=== PATIENT | male | born 1960 | race Hispanic/Latino ===

== ENCOUNTER 2020-02-05 22:40 | Inpatient (IN) | payer OTHER ==
[~2020-02-05] VITALS: Ht 165.1 cm; Wt 79.4 kg
[2020-02-05 23:29] LABS: ABG BASE EXCESS -0.7 mmol/L (-2.0-3.0); ABG OXYGEN SATURATION 92.1 % (95.0-99.0); ABG PCO2 31 mmHg (35-48)
[2020-02-05 23:46] LABS: BASOPHILS % (AUTO) 0.2 % (0.0-5.0); HEMATOCRIT 31.4 % (42-54); LYMPHOCYTES % (AUTO) 11.7 % (21.0-51.0); MEAN CORPUSCULAR HEMOGLOBIN 30.6 pg (27.0-33.0); MEAN CORPUSCULAR VOLUME 87.5 fL (79-99); MONOCYTES % (AUTO) 3.5 % (3.0-13.0); NEUTROPHILS % (AUTO) 83.5 % (40.0-77.0); PLATELET COUNT (AUTO) 219 K/uL (130-400); RED BLOOD CELL COUNT(AUTO) 3.59 MIL/uL (4.50-6.20); RED CELL DISTRIBUTION WIDTH 13.7 % (11.0-15.5); WHITE BLOOD COUNT (AUTO) 9.3 K/uL (4.8-10.8)
[2020-02-05 23:58] LABS: CREATININE 1.4 mg/dL (0.5-1.5); POTASSIUM 3.9 mmol/L (3.5-5.1)
[2020-02-05 23:59] LABS: INR 0.96 (0.85-1.15); PARTIAL THROMBOPLASTIN TIME 33.3 SEC (26.3-35.5); PROTHROMBIN TIME 10.4 SEC (9.6-11.6)
[2020-02-06 00:03] LABS: ALBUMIN 3.3 g/dL (3.5-5.0); BILIRUBIN,TOTAL 0.5 mg/dL (0.2-1.0); TOTAL PROTEIN, SERUM 7.6 g/dL (6.0-8.3)
[2020-02-06] MEDS ORDERED: ONDANSETRON ODT 4 MG TAB ONE ×2 (00:37→01:09)
[2020-02-06] MEDS ORDERED: FAMOTIDINE 20MG TAB 20 MG TAB ONE ×3 (00:37→21:49)
[2020-02-06 00:40] LABS: B-TYPE NATRIURETIC PEPTIDE 35 pg/mL (0-100)
[2020-02-06] MEDS ORDERED: IOHEXOL-350 75 ML VIAL IV ONE (01:24)
[2020-02-06] MEDS ORDERED: DEXAMETHASONE SOD PHOSPHATE 4 MG/ML 1ML VIAL ONE (01:29)
[2020-02-06] MEDS ORDERED: AZITHROMYCIN 500MG+NS 250ML 250 ML IV ONE (01:29)
[2020-02-06] MEDS ORDERED: CEFTRIAXONE SODIUM 1 GM ONE ×2 (01:30→13:13)
[2020-02-06] MEDS: AZITHROMYCIN 500MG+NS 250ML 250 ML IV SCH (02:30)
[2020-02-06] MEDS ORDERED: ONDANSETRON HCL 4 MG/2 ML VIAL IV PRN (02:30)
[2020-02-06] MEDS: CEFTRIAXONE SODIUM 1 GM IVP SCH ×2 (02:30→14:30)
[2020-02-06] MEDS ORDERED: SODIUM CHLORIDE 0.9% 1000ML 1,000 ML IV SCH (02:30)
[2020-02-06 03:30] LABS: APPEARANCE,URINE Clear (CLEAR); BILIRUBIN,URINE Negative (NEGATIVE); COLOR,URINE Yellow (YELLOW); GLUCOSE, URINE (UA) Negative (NEGATIVE); KETONES,URINE Trace mg/dL (NEGATIVE); LEUKOCYTE ESTERASE ,URINE Negative (NEGATIVE); NITRATE,URINE Negative (NEGATIVE); OCCULT BLOOD,URINE Moderate (NEGATIVE); PH,URINE 5.5 (5.0-8.0); PROTEIN,URINE POS 2+ mg/dL (NEGATIVE)
[2020-02-06 03:40] LABS: BACTERIA,URINE None Seen /HPF (None Seen); RBC,URINE 0-1 /HPF (0-1); SQUAMOUS EPITHELIAL CELL,UR Rare /HPF (0-2); WBC,URINE None Seen /HPF (0-1)
[2020-02-06 06:39] LABS: HEMATOCRIT 29.4 % (42-54); MEAN CORPUSCULAR HEMOGLOBIN 31.4 pg (27.0-33.0); MEAN CORPUSCULAR HGB CONC 35.7 g/dL (32.0-36.0); RED BLOOD CELL COUNT(AUTO) 3.34 MIL/uL (4.50-6.20); RED CELL DISTRIBUTION WIDTH 13.8 % (11.0-15.5); WHITE BLOOD COUNT (AUTO) 8.8 K/uL (4.8-10.8)
[2020-02-06 07:18] LABS: BILIRUBIN,TOTAL 0.4 mg/dL (0.2-1.0); CREATININE 1.1 mg/dL (0.5-1.5); POTASSIUM 4.1 mmol/L (3.5-5.1); TOTAL PROTEIN, SERUM 7.1 g/dL (6.0-8.3)
[2020-02-06 07:32] LABS: CRP QUANTITATIVE 347.7 mg/L (0.00-9.0)
[2020-02-06] MEDS ORDERED: FAMOTIDINE/PF 20 MG/2 ML VIAL IV ONE ×2 (08:56→21:57)
[2020-02-06] MEDS ORDERED: ERGOCALCIFEROL (VITAMIN D2) 50,000 UNIT CAPSULE PO ONE (09:00)
[2020-02-06] MEDS: FAMOTIDINE/PF 20 MG/2 ML VIAL IV SCH ×2 (09:00→21:00)
[2020-02-06] MEDS: ZINC SULFATE 220 CAPSULE PO SCH (09:00)
[2020-02-06] MEDS: ASCORBIC ACID 500 MG TAB PO SCH (09:00)
[2020-02-06] MEDS ORDERED: ENOXAPARIN SODIUM 40 MG/0.4 ML SYRINGE SQ ONE (11:38)
[2020-02-06] MEDS ORDERED: SODIUM CHLORIDE 0.9% 50 ML IV ONE (13:13)
[2020-02-06] MEDS: METHYLPREDNISOLONE SOD SUCC 40MG/ML 1ML IVP SCH ×2 (15:00→23:00)
[2020-02-06] MEDS ORDERED: METHYLPREDNISOLONE SOD SUCC 40MG/ML 1ML ONE ×2 (15:11→23:48)
--- NOTE | 2020-02-06 15:11 | NUR ---
CM SPOKE TO PATIENT VIA PHONE OFFERED TO GET INFORMATION FROM SOMEONE ELSE ON HIS FACE SHEET, DECLINED, SHORT OF BREATH VAHID IS ACTIVE, OFE, NO DME, EMPLOYED BY THE [facility], DRIVES, SEE DAREN WEBBER HAS BP CUFF AND NEBULIZER AT HOME, NO GLUCOMETER CPAP LIVES WITH SPOUSE, REC'D, CONFIRMED NUMBER AND ADDED TO FACE SHEET, AND FAXED DCP IS HOME. CM TO FOLLOW Addendum: 02/06/20 at 1516 by RUDDY RIOS RN CM Amended: Links added.
[2020-02-06] MEDS: LACTATED RINGERS 1000ML 1,000 ML IV SCH (17:15)
[2020-02-06] MEDS: ENOXAPARIN SODIUM 100 MG/1 ML SQ SCH (21:00)
[2020-02-06] MEDS ORDERED: ENOXAPARIN SODIUM 100 MG/1 ML SQ ONE (21:48)
[2020-02-06] MEDS ORDERED: LACTATED RINGERS 1000ML 1,000 ML IV ONE (21:49)
[2020-02-07] MEDS ORDERED: CEFTRIAXONE SODIUM 1 GM ONE (01:25)
[2020-02-07] MEDS ORDERED: AZITHROMYCIN 500MG+NS 250ML 250 ML IV ONE (01:25)
[2020-02-07] MEDS ORDERED: OXYMETAZOLINE HCL SPRAY 15 ML BOTTLE ONE (01:42)
[2020-02-07] MEDS: AZITHROMYCIN 500MG+NS 250ML 250 ML IV SCH (02:30)
[2020-02-07] MEDS: CEFTRIAXONE SODIUM 1 GM IVP SCH ×2 (02:30→15:18)
[2020-02-07] MEDS ORDERED: OXYMETAZOLINE HCL SPRAY 15 ML BOTTLE NS PRN ×2 (02:30→19:15)
[2020-02-07] MEDS: LACTATED RINGERS 1000ML 1,000 ML IV SCH ×3 (03:15→23:29)
[2020-02-07 04:00] VITALS: BP 152/78
[2020-02-07] MEDS: METHYLPREDNISOLONE SOD SUCC 40MG/ML 1ML IVP SCH ×3 (06:12→23:28)
[2020-02-07 07:32] LABS: HEMATOCRIT 32.4 % (42-54); MEAN CORPUSCULAR HEMOGLOBIN 31.4 pg (27.0-33.0); MEAN CORPUSCULAR HGB CONC 34.9 g/dL (32.0-36.0); RED BLOOD CELL COUNT(AUTO) 3.6 MIL/uL (4.50-6.20); RED CELL DISTRIBUTION WIDTH 14.1 % (11.0-15.5); WHITE BLOOD COUNT (AUTO) 12.5 K/uL (4.8-10.8)
[2020-02-07 07:48] LABS: ALBUMIN 2.9 g/dL (3.5-5.0); BILIRUBIN,TOTAL 0.4 mg/dL (0.2-1.0); CREATININE 1.1 mg/dL (0.5-1.5); POTASSIUM 4.9 mmol/L (3.5-5.1); TOTAL PROTEIN, SERUM 7.3 g/dL (6.0-8.3)
[2020-02-07 07:57] LABS: CRP QUANTITATIVE 289.3 mg/L (0.00-9.0)
[2020-02-07 08:00] VITALS: BP 128/74
[2020-02-07] MEDS: ASCORBIC ACID 500 MG TAB PO SCH (09:05)
[2020-02-07] MEDS: ZINC SULFATE 220 CAPSULE PO SCH (09:05)
[2020-02-07] MEDS: ENOXAPARIN SODIUM 100 MG/1 ML SQ SCH ×2 (09:05→21:00)
[2020-02-07] MEDS: FAMOTIDINE/PF 20 MG/2 ML VIAL IV SCH ×2 (09:06→21:00)
--- NOTE | 2020-02-07 10:24 | NUR ---
CHART CHECK COMPLETED. Pt IS A 59 Y.O. MALE ADMITTED SECONDARY TO ACUTE RHABDOMYOLYSIS, PUI COVID19, ACUTE HYPOXEMIA, PNA. Pt WITH A PAST MEDICAL HISTORY SIGNIFICANT FOR THYROID PROBLEMS, HYPERCHOLESTEROLEMIA. Pt CURRENTLY ON CLEAR LIQUID DIET. PLEASE REQUEST A FORMAL DYSPHAGIA EVALUATION OF Pt'S RESPIRATORY STATUS DECLINES OR Pt PRESENTS WITH +S/S OF ASPIRATION DURING SWALLOWING SUCK COUGH RESPONSE, THROAT CLEAR, OR WET VOCAL QUALITY. Addendum: 02/07/20 at 1028 by JOSELINE SOTELO, [facility] Amended: Links added.
[2020-02-07 11:00] VITALS: BP 139/81
[2020-02-07 16:00] VITALS: BP 147/87
[2020-02-07] MEDS ORDERED: ENOXAPARIN SODIUM 40 MG/0.4 ML SYRINGE SQ SCH (16:00)
[2020-02-07 20:00] VITALS: BP 151/91
[2020-02-08] VITALS (48 sets, daily range): BP systolic 101–196; BP diastolic 57–106
[2020-02-08] MEDS: ALBUTEROL INHALER 90MCG/INH IH PRN ×2 (00:20→00:21)
[2020-02-08 02:46] LABS: ABG BASE EXCESS -0.3 mmol/L (-2.0-3.0); ABG HCO3 22.8 mmol/L (21.0-28.0); ABG OXYGEN SATURATION 83.6 % (95.0-99.0); ABG PCO2 33 mmHg (35-48)
[2020-02-08] MEDS: CEFTRIAXONE SODIUM 1 GM IVP SCH ×2 (02:58→14:15)
[2020-02-08] MEDS: AZITHROMYCIN 500MG+NS 250ML 250 ML IV SCH (02:58)
[2020-02-08 05:21] LABS: HEMATOCRIT 30.1 % (42-54); MEAN CORPUSCULAR HGB CONC 35.2 g/dL (32.0-36.0); NUCLEATED RED BLOOD CELLS 0.4 % (0.0-0.19); RED BLOOD CELL COUNT(AUTO) 3.42 MIL/uL (4.50-6.20); RED CELL DISTRIBUTION WIDTH 14.2 % (11.0-15.5); WHITE BLOOD COUNT (AUTO) 13.4 K/uL (4.8-10.8)
[2020-02-08 05:54] LABS: ALBUMIN 2.7 g/dL (3.5-5.0); BILIRUBIN,TOTAL 0.4 mg/dL (0.2-1.0); CREATININE 1.3 mg/dL (0.5-1.5); POTASSIUM 4.2 mmol/L (3.5-5.1)
[2020-02-08 06:06] LABS: CRP QUANTITATIVE 237.2 mg/L (0.00-9.0)
[2020-02-08] MEDS ORDERED: SODIUM CHLORIDE 0.9% 250 ML IV ONE ×2 (06:24→09:09)
--- NOTE | 2020-02-08 07:15 | NUR ---
pt received from floor. aaox4 resp labored at rest. RT at bedside. on high flow nasal cannula and nrb. skin appropriate in color, warm, dry moving all extremities freely speaking in fragmented sentences with clear speech pt updated on POC.
[2020-02-08] MEDS: ZINC SULFATE 220 CAPSULE PO SCH (09:00)
[2020-02-08] MEDS: ASCORBIC ACID 500 MG TAB PO SCH (09:00)
[2020-02-08] MEDS: METHYLPREDNISOLONE SOD SUCC 40MG/ML 1ML IVP SCH ×3 (09:02→22:41)
[2020-02-08] MEDS: FAMOTIDINE/PF 20 MG/2 ML VIAL IV SCH ×2 (09:02→20:11)
[2020-02-08] MEDS: ENOXAPARIN SODIUM 100 MG/1 ML SQ SCH ×2 (09:04→20:12)
[2020-02-08] MEDS ORDERED: FUROSEMIDE 10 MG/ML 4ML VIAL ONE (09:08)
[2020-02-08] MEDS: FUROSEMIDE 10 MG/ML 4ML VIAL IV SCH (09:12)
[2020-02-08 09:15] LABS: ABG BASE EXCESS 0.7 mmol/L (-2.0-3.0); ABG HCO3 23.7 mmol/L (21.0-28.0); ABG OXYGEN SATURATION 88.7 % (95.0-99.0); ABG PCO2 34 mmHg (35-48)
--- NOTE | 2020-02-08 09:15 | NUR ---
Dr. Poe made aware of pt's resp status. Verbal order for lasix 40mg ivp daily. Dr. Yin at bedside. order for stat ABG. resp therapy at bedside high flow increased to 60 RN at bedside pt turned to R side 02 sat improved to 94%. Plasma started.
[2020-02-08] MEDS ORDERED: REMDESIVIR (INVESTIGATIONAL) 200 MG/250 ML NS IV ONE (09:30)
--- NOTE | 2020-02-08 14:00 | NUR ---
pt tachypneic, labored at rest. 02 sat dropping to 70s. Dr. Carrion made aware. MD at bedside. RN preparing meds for intubation. Resp therapist at bedside. Pt intubated successfully by MD. placement confirmed by xray. Central line placed by . Mariano placed. Pt continues to sat in 70s. MD aware of saturations.
[2020-02-08] MEDS ORDERED: SODIUM CHLORIDE 0.9% 100 ML IV ONE (14:11)
[2020-02-08] MEDS ORDERED: PROPOFOL 1000 MG/100 ML 100 ML IV ONE (14:44)
[2020-02-08] MEDS ORDERED: FENTANYL CITRATE PF 50 MCG/1 ML 2ML VIAL ONE (14:45)
[2020-02-08] MEDS ORDERED: NOREPINEPHRINE 4MG/NS 250ML 250 ML IV ONE (14:46)
[2020-02-08] MEDS ORDERED: FENTANYL CITRATE PF 50 MCG/1 ML 2ML VIAL IVP ONE (15:00)
[2020-02-08] MEDS ORDERED: ETOMIDATE 2 MG/ML 10 ML VIAL IVP SCH (15:00)
[2020-02-08] MEDS ORDERED: SODIUM CHLORIDE 0.9% 1000ML 1,000 ML IV ONE (15:47)
[2020-02-08] MEDS ORDERED: FENTANYL 1000MCG+NS 100ML 100 ML ONE ×2 (15:58→20:49)
[2020-02-08] MEDS: VECURONIUM BROMIDE 50 MG in SODIUM CHLORIDE 0.9% 50 ML IV SCH ×2 (16:41→20:46)
--- NOTE | 2020-02-08 17:45 | NUR ---
pt placed in prone position by 3 RNs and respiratory therapist. pt tolerating well. 02 sat remains in 80s. aware.
[2020-02-08 18:17] LABS: ABG BASE EXCESS -1.8 mmol/L (-2.0-3.0); ABG HCO3 27.5 mmol/L (21.0-28.0); ABG OXYGEN SATURATION 84.6 % (95.0-99.0); ABG PCO2 67 mmHg (35-48)
--- NOTE | 2020-02-08 19:01 | NUR ---
Report endorsed to MARY Hermosillo.
[2020-02-08] MEDS: PROPOFOL 1000 MG/100 ML IV PRN (20:11)
[2020-02-08] MEDS ORDERED: FENTANYL CITRATE PF 0.05 MG/ML 1,000 MCG in SODIUM CHLORIDE 0.9% 100 ML IVPB PRN (21:00)
[2020-02-09] VITALS (33 sets, daily range): BP systolic 77–145; BP diastolic 43–89
[2020-02-09] MEDS: PROPOFOL 1000 MG/100 ML IV PRN ×7 (00:28→21:39)
[2020-02-09] MEDS: CEFTRIAXONE SODIUM 1 GM IVP SCH ×2 (01:58→14:16)
[2020-02-09] MEDS: AZITHROMYCIN 500MG+NS 250ML 250 ML IV SCH (01:58)
[2020-02-09] MEDS: VECURONIUM BROMIDE 50 MG in SODIUM CHLORIDE 0.9% 50 ML IV SCH ×3 (02:16→20:05)
[2020-02-09] MEDS: FENTANYL 1000MCG+NS 100ML IV.SOLN IV SCH ×3 (03:57→17:29)
[2020-02-09] MEDS: METHYLPREDNISOLONE SOD SUCC 40MG/ML 1ML IVP SCH ×3 (06:29→23:34)
--- NOTE | 2020-02-09 07:09 | NUR ---
0400--PROPOFOL IV TUBING CHANGED AT THIS TIME PER PROTOL; IV CENTRAL PATENT,DRAINING; C/D/I 0700--REPORT GIVEN TO MARY HAMMER; VSS; NO S/S DISTRESS NOTED; RELINQUISHED PT CARE AT THIS TIME; PT REMAINS PRONED,SEDATED,PARALYZED, AND VENTED; NOTED VENT SYNCHRONY MAINTAINED
[2020-02-09 07:10] LABS: BASOPHILS % (AUTO) 0.1 % (0.0-5.0); HEMATOCRIT 28.8 % (42-54); LYMPHOCYTES % (AUTO) 8.9 % (21.0-51.0); MEAN CORPUSCULAR HEMOGLOBIN 31.5 pg (27.0-33.0); MEAN CORPUSCULAR VOLUME 92.6 fL (79-99); MONOCYTES % (AUTO) 1.5 % (3.0-13.0); NEUTROPHILS % (AUTO) 85.3 % (40.0-77.0); NUCLEATED RED BLOOD CELLS 0.3 % (0.0-0.19); PLATELET COUNT (AUTO) 303 K/uL (130-400); RED BLOOD CELL COUNT(AUTO) 3.11 MIL/uL (4.50-6.20); RED CELL DISTRIBUTION WIDTH 14.8 % (11.0-15.5); WHITE BLOOD COUNT (AUTO) 7.3 K/uL (4.8-10.8)
--- NOTE | 2020-02-09 08:00 | NUR ---
pt received resting comfortably in bed. 8.[address] 24 @ the lip Fio2 100% peep 12 RR 28 tidal volume 400 sedation and paralytics infusing through central line skin appropriate in color, warm, diaphoretic pt's head and arms repositioned.
[2020-02-09 08:17] LABS: ALBUMIN 2.2 g/dL (3.5-5.0); BILIRUBIN,DIRECT 0.1 mg/dL (0.0-0.3); BILIRUBIN,TOTAL 0.4 mg/dL (0.2-1.0); CREATININE 1.2 mg/dL (0.5-1.5); POTASSIUM 4.6 mmol/L (3.5-5.1); TOTAL PROTEIN, SERUM 6.4 g/dL (6.0-8.3)
[2020-02-09 08:43] LABS: CRP QUANTITATIVE 88.4 mg/L (0.00-9.0)
[2020-02-09] MEDS: FAMOTIDINE/PF 20 MG/2 ML VIAL IV SCH ×2 (10:04→20:04)
[2020-02-09] MEDS: ZINC SULFATE 220 CAPSULE PO SCH (10:04)
[2020-02-09] MEDS: ENOXAPARIN SODIUM 100 MG/1 ML SQ SCH ×2 (10:04→20:05)
[2020-02-09] MEDS: ASCORBIC ACID 500 MG TAB PO SCH (10:05)
[2020-02-09] MEDS: FUROSEMIDE 10 MG/ML 4ML VIAL IV SCH (10:21)
[2020-02-09] MEDS ORDERED: COMPOUND IV REFRIGERATED 1 EACH IVSOLN MISC PRN (13:00)
[2020-02-09] MEDS ORDERED: SODIUM CHLORIDE 0.9% 100 ML IV ONE (14:03)
--- NOTE | 2020-02-09 15:44 | NUR ---
pt turned and repositioned to supine with 2 RNs and RT. pt tolerated well.
--- NOTE | 2020-02-09 15:48 | NUR ---
Central line dressing changed as per hospital policy.
[2020-02-09] MEDS: REMDESIVIR (INVESTIGATIONAL) 100 MG in SODIUM CHLORIDE 0.9% 250 ML IV SCH (16:17)
[2020-02-09] MEDS ORDERED: NOREPINEPHRINE 4MG/NS 250ML 250 ML IV SCH (16:30)
[2020-02-09 17:04] LABS: ABG BASE EXCESS -0.2 mmol/L (-2.0-3.0); ABG HCO3 26.4 mmol/L (21.0-28.0); ABG PCO2 50 mmHg (35-48)
--- NOTE | 2020-02-09 17:18 | NUR ---
Dr. Carrion made aware of ABG results. as per MD titrate fio2 down. RT at bedside.
[2020-02-09] MEDS ORDERED: ALBUTEROL INHALER 90MCG/INH IH PRN (19:00)
--- NOTE | 2020-02-09 19:09 | NUR ---
Report endorsed to MARY Hermosillo
[2020-02-10] VITALS (37 sets, daily range): BP systolic 100–171; BP diastolic 51–100
[2020-02-10] MEDS: CEFTRIAXONE SODIUM 1 GM IVP SCH ×2 (01:17→14:29)
[2020-02-10] MEDS: AZITHROMYCIN 500MG+NS 250ML 250 ML IV SCH (01:17)
[2020-02-10] MEDS: PROPOFOL 1000 MG/100 ML IV PRN ×6 (01:17→22:35)
[2020-02-10] MEDS: VECURONIUM BROMIDE 50 MG in SODIUM CHLORIDE 0.9% 50 ML IV SCH ×2 (05:34→09:22)
[2020-02-10 05:56] LABS: PARTIAL THROMBOPLASTIN TIME 29.7 SEC (26.3-35.5); PROTHROMBIN TIME 10.8 SEC (9.6-11.6)
--- NOTE | 2020-02-10 06:39 | NUR ---
0000--propofol iv tubing changed 0100--levophed gtt titrated off at this time and fentanyl drip decreased to 10
[2020-02-10] MEDS: METHYLPREDNISOLONE SOD SUCC 40MG/ML 1ML IVP SCH ×2 (07:00→14:41)
--- NOTE | 2020-02-10 07:13 | NUR ---
BEDSIDE REPORT GIVEN TO MARY VELEZ; VSS; NO S/S DISTRESS NOTED; RELINQUISHED PT CARE AT THIS TIME
[2020-02-10] MEDS: ASCORBIC ACID 500 MG TAB PO SCH (07:56)
[2020-02-10] MEDS: ZINC SULFATE 220 CAPSULE PO SCH (07:56)
[2020-02-10] MEDS: FAMOTIDINE/PF 20 MG/2 ML VIAL IV SCH ×2 (07:56→20:26)
[2020-02-10] MEDS: ENOXAPARIN SODIUM 100 MG/1 ML SQ SCH ×2 (07:56→20:25)
[2020-02-10] MEDS: FUROSEMIDE 10 MG/ML 4ML VIAL IV SCH (07:59)
[2020-02-10 08:51] LABS: HEMATOCRIT 28.9 % (42-54); MEAN CORPUSCULAR HEMOGLOBIN 30.4 pg (27.0-33.0); MEAN CORPUSCULAR HGB CONC 32.5 g/dL (32.0-36.0); MEAN CORPUSCULAR VOLUME 93.5 fL (79-99); NUCLEATED RED BLOOD CELLS 0.4 % (0.0-0.19); PLATELET COUNT (AUTO) 341 K/uL (130-400); RED BLOOD CELL COUNT(AUTO) 3.09 MIL/uL (4.50-6.20); RED CELL DISTRIBUTION WIDTH 14.8 % (11.0-15.5); WHITE BLOOD COUNT (AUTO) 9.6 K/uL (4.8-10.8)
[2020-02-10] MEDS ORDERED: DEXAMETHASONE 4 MG TAB PO SCH (09:00)
[2020-02-10] MEDS: FENTANYL 1000MCG+NS 100ML IV.SOLN IV SCH ×2 (09:01→19:27)
[2020-02-10 09:06] LABS: BAND NEUTROPHILS % (MANUAL) 5 % (0-2); LYMPHOCYTES % (MANUAL) 6 % (22-44); MAN.DIFF COMMENT-IMPRESSION MANUAL DIFFERENTIAL; METAMYELOCYTES % 1 % (0-0); MONOCYTES % (MANUAL) 4 % (2-9); SEGMENTED NEUTROPHILS % 84 % (40-70)
[2020-02-10 09:16] LABS: CREATININE 1.2 mg/dL (0.5-1.5); POTASSIUM 4.5 mmol/L (3.5-5.1)
[2020-02-10 09:20] LABS: ALBUMIN 2.2 g/dL (3.5-5.0); BILIRUBIN,TOTAL 0.2 mg/dL (0.2-1.0); TOTAL PROTEIN, SERUM 6.4 g/dL (6.0-8.3)
[2020-02-10 09:39] LABS: ABG BASE EXCESS 2.1 mmol/L (-2.0-3.0); ABG HCO3 27.9 mmol/L (21.0-28.0); ABG OXYGEN SATURATION 97.1 % (95.0-99.0); ABG PCO2 49 mmHg (35-48)
--- NOTE | 2020-02-10 12:00 | NUR ---
MD rounds Dr. Poe at bedside discussed case with him was told to stop paralytics and see how patient does if he does not get agitated and breath over the ventilator we may start feedings trophic at 10cc/h as per pamphlet distributor recommendation use recommended tube feeding and free water [id number].
[2020-02-10] MEDS: REMDESIVIR (INVESTIGATIONAL) 100 MG in SODIUM CHLORIDE 0.9% 250 ML IV SCH (14:29)
--- NOTE | 2020-02-10 15:57 | NUR ---
RD NOTIFICATION Pt admitted with Acute Rhabdomyolysis. Pt intubated/sedated. Respiratory failure. Pending COVID-19 results. Recommend continuous tube feeding, Vital High Protein @goal rate of 45mls to provide 1080kcal, 95gm protein. Flush 100mls Q6hrs. Propofol 15.75mls/hr in place (416 kcal/d). Recommendations faxed to ext [phone]. RN notified. RD to continue to monitor. Please notify as additional nutrition concerns arise. Thank you.
[2020-02-10] MEDS ORDERED: SODIUM CHLORIDE 0.9% 1000ML 1,000 ML IV ONE (19:24)
[2020-02-10] MEDS: DEXAMETHASONE SOD PHOSPHATE 4 MG/ML 1ML VIAL IM SCH (20:26)
[2020-02-11] VITALS (28 sets, daily range): BP systolic 104–132; BP diastolic 58–86
[2020-02-11] MEDS: PROPOFOL 1000 MG/100 ML IV PRN ×8 (01:36→23:43)
[2020-02-11] MEDS: CEFTRIAXONE SODIUM 1 GM IVP SCH ×2 (01:36→15:21)
[2020-02-11] MEDS: AZITHROMYCIN 500MG+NS 250ML 250 ML IV SCH (01:36)
[2020-02-11] MEDS: FENTANYL 1000MCG+NS 100ML IV.SOLN IV SCH ×4 (02:47→23:41)
[2020-02-11] MEDS ORDERED: PROPOFOL 1000 MG/100 ML 100 ML IV ONE (04:15)
[2020-02-11 04:21] LABS: BASOPHILS % (AUTO) 0.3 % (0.0-5.0); HEMATOCRIT 30.5 % (42-54); MEAN CORPUSCULAR HEMOGLOBIN 31.3 pg (27.0-33.0); MEAN CORPUSCULAR HGB CONC 32.8 g/dL (32.0-36.0); MEAN CORPUSCULAR VOLUME 95.3 fL (79-99); MONOCYTES % (AUTO) 2.1 % (3.0-13.0); NEUTROPHILS % (AUTO) 81.8 % (40.0-77.0); NUCLEATED RED BLOOD CELLS 0.8 % (0.0-0.19); PLATELET COUNT (AUTO) 375 K/uL (130-400); WHITE BLOOD COUNT (AUTO) 9.9 K/uL (4.8-10.8)
[2020-02-11 04:36] LABS: INR 0.99 (0.85-1.15); PROTHROMBIN TIME 10.7 SEC (9.6-11.6)
[2020-02-11 04:39] LABS: ALBUMIN 2.1 g/dL (3.5-5.0); BILIRUBIN,TOTAL 0.3 mg/dL (0.2-1.0); CREATININE 1.3 mg/dL (0.5-1.5); POTASSIUM 4.6 mmol/L (3.5-5.1); TOTAL PROTEIN, SERUM 6.6 g/dL (6.0-8.3)
--- NOTE | 2020-02-11 06:35 | NUR ---
0000--IV PROPOFOL TUBING CHANGED PER PROTOCOL
--- NOTE | 2020-02-11 07:14 | NUR ---
REPORT GIVEN TO MARY LINARES; VSS ON SEDATION; NO S/S DISTRESS NOTED; CENTRAL LINE DRESSING CHANGED @0500; NO ACTIVE BLEEDING OR HEMATOMA NOTED; RELINQUISHED PT CARE AT THIS TIME
[2020-02-11] MEDS: FUROSEMIDE 10 MG/ML 4ML VIAL IV SCH (07:57)
[2020-02-11] MEDS: ASCORBIC ACID 500 MG TAB PO SCH (08:02)
[2020-02-11] MEDS: FAMOTIDINE/PF 20 MG/2 ML VIAL IV SCH ×2 (08:02→21:22)
[2020-02-11] MEDS: ZINC SULFATE 220 CAPSULE PO SCH (08:02)
[2020-02-11] MEDS: ENOXAPARIN SODIUM 100 MG/1 ML SQ SCH ×2 (08:03→21:26)
[2020-02-11] MEDS: DEXAMETHASONE SOD PHOSPHATE 4 MG/ML 1ML VIAL IM SCH ×2 (08:03→21:29)
[2020-02-11] MEDS ORDERED: DEXAMETHASONE 4 MG TAB PO SCH (09:00)
[2020-02-11 09:24] LABS: ABG BASE EXCESS 1.2 mmol/L (-2.0-3.0); ABG HCO3 26.5 mmol/L (21.0-28.0); ABG OXYGEN SATURATION 97.9 % (95.0-99.0); ABG PCO2 44 mmHg (35-48)
[2020-02-11] MEDS: REMDESIVIR (INVESTIGATIONAL) 100 MG in SODIUM CHLORIDE 0.9% 250 ML IV SCH (15:21)
[2020-02-11] MEDS ORDERED: MIDAZOLAM 50MG-0.9% NS 50ML 50 ML BAG IV SCH (16:15)
[2020-02-11] MEDS: MIDAZOLAM 50MG-0.9% NS 50ML 50 ML IV SCH ×2 (16:34→19:36)
[2020-02-11] MEDS: ACETAMINOPHEN 325 MG TAB PO PRN (21:28)
[2020-02-11] MEDS: VECURONIUM BROMIDE 50 MG in SODIUM CHLORIDE 0.9% 50 ML IV SCH (23:43)
[2020-02-12] VITALS (46 sets, daily range): BP systolic 97–123; BP diastolic 54–83
[2020-02-12] MEDS: CEFTRIAXONE SODIUM 1 GM IVP SCH ×2 (01:19→15:18)
[2020-02-12] MEDS: AZITHROMYCIN 500MG+NS 250ML 250 ML IV SCH (01:32)
[2020-02-12] MEDS: VECURONIUM BROMIDE 50 MG in SODIUM CHLORIDE 0.9% 50 ML IV SCH (01:32)
[2020-02-12] MEDS: MIDAZOLAM 50MG-0.9% NS 50ML 50 ML IV SCH ×4 (01:32→21:11)
[2020-02-12] MEDS: PROPOFOL 1000 MG/100 ML IV PRN ×5 (02:21→19:41)
[2020-02-12] MEDS: FENTANYL 1000MCG+NS 100ML IV.SOLN IV SCH ×4 (02:27→22:26)
[2020-02-12 04:47] LABS: BASOPHILS % (AUTO) 0.2 % (0.0-5.0); EOSINOPHILS % (AUTO) 0.1 % (0.0-8.0); HEMATOCRIT 28.9 % (42-54); LYMPHOCYTES % (AUTO) 7.7 % (21.0-51.0); MEAN CORPUSCULAR HEMOGLOBIN 30.9 pg (27.0-33.0); MEAN CORPUSCULAR HGB CONC 32.5 g/dL (32.0-36.0); MEAN CORPUSCULAR VOLUME 95.1 fL (79-99); MONOCYTES % (AUTO) 1.4 % (3.0-13.0); NEUTROPHILS % (AUTO) 83.3 % (40.0-77.0); NUCLEATED RED BLOOD CELLS 0.6 % (0.0-0.19); PLATELET COUNT (AUTO) 332 K/uL (130-400); RED BLOOD CELL COUNT(AUTO) 3.04 MIL/uL (4.50-6.20); RED CELL DISTRIBUTION WIDTH 14.8 % (11.0-15.5)
[2020-02-12 05:02] LABS: INR 0.99 (0.85-1.15); PARTIAL THROMBOPLASTIN TIME 29.2 SEC (26.3-35.5); PROTHROMBIN TIME 10.7 SEC (9.6-11.6)
[2020-02-12 05:03] LABS: ALBUMIN 2.1 g/dL (3.5-5.0); BILIRUBIN,TOTAL 0.4 mg/dL (0.2-1.0); CREATININE 1.6 mg/dL (0.5-1.5); POTASSIUM 5.2 mmol/L (3.5-5.1); TOTAL PROTEIN, SERUM 6.8 g/dL (6.0-8.3)
[2020-02-12 05:22] LABS: CRP QUANTITATIVE 229.7 mg/L (0.00-9.0)
--- NOTE | 2020-02-12 08:00 | NUR ---
VS STABLE, DECREASED PEEP, WILL PERFORM ABG, DECREASING VECURONIUM. PT NOT BREATHING OVER VENTILLATOR
[2020-02-12] MEDS: ENOXAPARIN SODIUM 100 MG/1 ML SQ SCH ×2 (09:04→21:11)
[2020-02-12] MEDS: FAMOTIDINE/PF 20 MG/2 ML VIAL IV SCH ×2 (09:04→21:10)
[2020-02-12] MEDS: FUROSEMIDE 10 MG/ML 4ML VIAL IV SCH (09:10)
[2020-02-12] MEDS: METHYLPREDNISOLONE SOD SUCC 125MG/2ML VIAL IVP SCH ×3 (09:10→21:10)
[2020-02-12] MEDS: ASCORBIC ACID 500 MG TAB PO SCH (09:11)
[2020-02-12] MEDS: GUAIFENESIN-DM 200/20 MG 10 ML PO PRN (09:12)
[2020-02-12 09:40] LABS: ABG BASE EXCESS -0.6 mmol/L (-2.0-3.0); ABG HCO3 24.9 mmol/L (21.0-28.0); ABG OXYGEN SATURATION 97.3 % (95.0-99.0); ABG PCO2 44 mmHg (35-48)
--- NOTE | 2020-02-12 10:00 | NUR ---
DR NAMRATA ARRIAGA INFORMED
[2020-02-12] MEDS: ZINC SULFATE 220 CAPSULE PO SCH (10:19)
--- NOTE | 2020-02-12 11:30 | NUR ---
DECREASED VECURONIUM PER MDS DIRECTION. VS STABLE, VENT FIO2 DOWN TO 60% WILL CONTINUE TO MONITOR
[2020-02-12] MEDS: ARTIFICAL TEARS SOL 15 ML OU SCH ×2 (12:54→21:10)
--- NOTE | 2020-02-12 14:00 | NUR ---
FAMILY UPDATE ON PTS CONDITION SPOKE TO , WHO ALSO WANTS INFO TO BE GIVEN TO HIS BROTHER UMER HAAS
[2020-02-12] MEDS: REMDESIVIR (INVESTIGATIONAL) 100 MG in SODIUM CHLORIDE 0.9% 250 ML IV SCH (15:26)
--- NOTE | 2020-02-12 15:30 | NUR ---
PRONE POSITION , PER DR OTT'S ORDER. PT IS TOLERATING WITH SLIGHTLY IMPROVED OXYGENATION. WILL CONTINUE TO MONITOR
--- NOTE | 2020-02-12 16:36 | NUR ---
SPO2 96% VS 89% IN PRONE POSITION
[2020-02-12] MEDS: ACETAMINOPHEN 325 MG TAB PO PRN (17:21)
[2020-02-12] MEDS ORDERED: INSULIN HUMULIN R 100 UNIT/ML 3ML SQ SCH (21:00)
[2020-02-12] MEDS: INSULIN HUMULIN R 100 UNIT/ML 3ML SQ SCH (23:59)
[2020-02-13] VITALS (43 sets, daily range): BP systolic 110–142; BP diastolic 66–94
[2020-02-13] MEDS: CEFTRIAXONE SODIUM 1 GM IVP SCH ×2 (02:27→13:26)
[2020-02-13] MEDS: METHYLPREDNISOLONE SOD SUCC 125MG/2ML VIAL IVP SCH ×3 (02:27→17:30)
[2020-02-13] MEDS: MIDAZOLAM 50MG-0.9% NS 50ML 50 ML IV SCH ×3 (04:19→17:31)
[2020-02-13] MEDS: FENTANYL 1000MCG+NS 100ML IV.SOLN IV SCH ×3 (04:19→20:42)
[2020-02-13 04:22] LABS: HEMATOCRIT 36.2 % (42-54); MEAN CORPUSCULAR HEMOGLOBIN 30.2 pg (27.0-33.0); MEAN CORPUSCULAR HGB CONC 31.5 g/dL (32.0-36.0); NUCLEATED RED BLOOD CELLS 0.3 % (0.0-0.19); PLATELET COUNT (AUTO) 393 K/uL (130-400); RED BLOOD CELL COUNT(AUTO) 3.77 MIL/uL (4.50-6.20); WHITE BLOOD COUNT (AUTO) 15.9 K/uL (4.8-10.8)
[2020-02-13 05:02] LABS: BAND NEUTROPHILS % (MANUAL) 2 % (0-2); LYMPHOCYTES % (MANUAL) 4 % (22-44); MAN.DIFF COMMENT-IMPRESSION MANUAL DIFFERENTIAL; MONOCYTES % (MANUAL) 1 % (2-9); SEGMENTED NEUTROPHILS % 93 % (40-70)
[2020-02-13 05:14] LABS: ALBUMIN 2.3 g/dL (3.5-5.0); BILIRUBIN,TOTAL 0.3 mg/dL (0.2-1.0); POTASSIUM 5.3 mmol/L (3.5-5.1); TOTAL PROTEIN, SERUM 7.5 g/dL (6.0-8.3)
[2020-02-13] MEDS: INSULIN HUMULIN R 100 UNIT/ML 3ML SQ SCH ×3 (05:35→17:46)
[2020-02-13 05:56] LABS: INR 0.99 (0.85-1.15); PROTHROMBIN TIME 10.7 SEC (9.6-11.6)
[2020-02-13 06:21] LABS: CRP QUANTITATIVE 221.7 mg/L (0.00-9.0)
[2020-02-13 08:35] LABS: ABG BASE EXCESS -5.7 mmol/L (-2.0-3.0); ABG HCO3 20.7 mmol/L (21.0-28.0); ABG OXYGEN SATURATION 95.2 % (95.0-99.0); ABG PCO2 44 mmHg (35-48)
[2020-02-13] MEDS: FAMOTIDINE/PF 20 MG/2 ML VIAL IV SCH ×2 (09:13→20:41)
[2020-02-13] MEDS: ASCORBIC ACID 500 MG TAB PO SCH (09:13)
[2020-02-13] MEDS: ZINC SULFATE 220 CAPSULE PO SCH (09:14)
[2020-02-13] MEDS: ENOXAPARIN SODIUM 100 MG/1 ML SQ SCH (09:14)
[2020-02-13] MEDS: ARTIFICAL TEARS SOL 15 ML OU SCH ×2 (09:14→20:41)
[2020-02-13] MEDS: FUROSEMIDE 10 MG/ML 4ML VIAL IV SCH (09:17)
[2020-02-13] MEDS: GUAIFENESIN-DM 200/20 MG 10 ML PO PRN (09:18)
[2020-02-13] MEDS ORDERED: METHYLPREDNISOLONE SOD SUCC 125MG/2ML VIAL IVP SCH (11:30)
[2020-02-13] MEDS ORDERED: PHARMACY COMMUNICATION MISC SCH (11:30)
[2020-02-13] MEDS: SODIUM BICARB 8.4% 50ML SYRING 150 MEQ in SODIUM CHLORIDE 0.9% 1000ML 1,000 ML IV SCH ×2 (11:55→20:27)
[2020-02-13 16:42] LABS: CREATININE 2.5 mg/dL (0.5-1.5); POTASSIUM 4.6 mmol/L (3.5-5.1)
[2020-02-13 20:29] LABS: ABG BASE EXCESS 4.8 mmol/L (-2.0-3.0); ABG HCO3 28.9 mmol/L (21.0-28.0); ABG OXYGEN SATURATION 93.7 % (95.0-99.0); ABG PCO2 41 mmHg (35-48)
--- NOTE | 2020-02-13 22:18 | NUR ---
PT REMAINS IN PRONE POSITION. WILL CONTINUE TO MONITOR. BICARB DRIP ON HOLD. PLACED CALL TO ORDERING PHYSICIANS ANSWERING SERVICE. THE REPEAT ABG SHOWS A PH OF 7.46. PT HAS SOME NOTICEABLE BLOOD IN URINE AND OOZING AROUND THE CENTRAL LINE SITE. DECREASED VERSED TO 9MG/HR. WILLMCONTINUE TO MONITOR.
[2020-02-14] VITALS (51 sets, daily range): BP systolic 105–145; BP diastolic 54–87
[2020-02-14] MEDS: CEFTRIAXONE SODIUM 1 GM IVP SCH ×2 (01:18→14:03)
[2020-02-14] MEDS: METHYLPREDNISOLONE SOD SUCC 125MG/2ML VIAL IVP SCH ×3 (01:18→17:23)
[2020-02-14] MEDS: MIDAZOLAM 50MG-0.9% NS 50ML 50 ML IV SCH ×3 (04:40→19:32)
[2020-02-14] MEDS: FENTANYL 1000MCG+NS 100ML IV.SOLN IV SCH ×3 (04:40→19:32)
[2020-02-14] MEDS: INSULIN HUMULIN R 100 UNIT/ML 3ML SQ SCH ×5 (06:00→23:35)
[2020-02-14 06:26] LABS: INR 0.97 (0.85-1.15); PARTIAL THROMBOPLASTIN TIME 27.4 SEC (26.3-35.5); PROTHROMBIN TIME 10.5 SEC (9.6-11.6)
[2020-02-14 06:56] LABS: BILIRUBIN,TOTAL 0.3 mg/dL (0.2-1.0); CREATININE 1.5 mg/dL (0.5-1.5); CRP QUANTITATIVE 104.2 mg/L (0.00-9.0); MAGNESIUM 3.6 mg/dL (1.80-2.40); PHOSPHORUS 3.7 mg/dL (2.5-4.9); POTASSIUM 4.3 mmol/L (3.5-5.1); TOTAL PROTEIN, SERUM 6.6 g/dL (6.0-8.3)
[2020-02-14 07:59] LABS: ABG BASE EXCESS 3.5 mmol/L (-2.0-3.0); ABG HCO3 28.2 mmol/L (21.0-28.0); ABG OXYGEN SATURATION 96.7 % (95.0-99.0); ABG PCO2 43 mmHg (35-48)
[2020-02-14] MEDS: ZINC SULFATE 220 CAPSULE PO SCH (08:06)
[2020-02-14] MEDS: FAMOTIDINE/PF 20 MG/2 ML VIAL IV SCH ×2 (08:06→20:59)
[2020-02-14] MEDS: ASCORBIC ACID 500 MG TAB PO SCH (08:06)
[2020-02-14] MEDS: ENOXAPARIN SODIUM 120 MG/0.8ML SQ SCH (08:07)
[2020-02-14] MEDS: ARTIFICAL TEARS SOL 15 ML OU SCH ×2 (08:08→20:59)
[2020-02-14 08:26] LABS: BAND NEUTROPHILS % (MANUAL) 3 % (0-2); LYMPHOCYTES % (MANUAL) 12 % (22-44); MAN.DIFF COMMENT-IMPRESSION MANUAL DIFFERENTIAL; MONOCYTES % (MANUAL) 6 % (2-9); SEGMENTED NEUTROPHILS % 79 % (40-70)
[2020-02-14 08:31] LABS: PLATELET MORPHOLOGY COMMENT ADEQUATE
[2020-02-14 08:32] LABS: HEMATOCRIT 35.5 % (42-54); MEAN CORPUSCULAR HEMOGLOBIN 30.8 pg (27.0-33.0); MEAN CORPUSCULAR HGB CONC 32.1 g/dL (32.0-36.0); MEAN CORPUSCULAR VOLUME 95.9 fL (79-99); NUCLEATED RED BLOOD CELLS 0.3 % (0.0-0.19); PLATELET COUNT (AUTO) 377 K/uL (130-400); RED CELL DISTRIBUTION WIDTH 14.8 % (11.0-15.5); WHITE BLOOD COUNT (AUTO) 11.9 K/uL (4.8-10.8)
[2020-02-14] MEDS ORDERED: ENOXAPARIN SODIUM 1 MG/KG SQ SCH (09:00)
--- NOTE | 2020-02-14 10:30 | NUR ---
PLACED IN SUPINE POSITION WITH ASSIST X 4. TOLERAING WITH GOOD OXYGENATION
[2020-02-14] MEDS: DOCUSATE NA 100MG/10ML UDCUP PO SCH (12:22)
--- NOTE | 2020-02-14 12:30 | NUR ---
CENTRAL LINE BLEEDING FROM SITE OF ENTRANCE. APPLIED PRESSURE, DRESSING CHANGE
--- NOTE | 2020-02-14 18:00 | NUR ---
SURGICEL AND PRESSURE APPLIED TO BLEEDING IJ CENTRAL LINE. STERILE TECHNIQUE. DRESSING CHANGED
[2020-02-14] MEDS: ACETAMINOPHEN 325 MG TAB PO PRN (23:33)
[2020-02-15] VITALS (64 sets, daily range): BP systolic 96–153; BP diastolic 53–90
[2020-02-15] MEDS: FENTANYL 1000MCG+NS 100ML IV.SOLN IV SCH ×3 (00:39→22:29)
[2020-02-15] MEDS: MIDAZOLAM 50MG-0.9% NS 50ML 50 ML IV SCH ×3 (00:40→20:58)
[2020-02-15] MEDS: METHYLPREDNISOLONE SOD SUCC 125MG/2ML VIAL IVP SCH ×3 (00:40→18:32)
[2020-02-15] MEDS: CEFTRIAXONE SODIUM 1 GM IVP SCH ×2 (02:09→14:57)
[2020-02-15 05:00] LABS: MEAN CORPUSCULAR HEMOGLOBIN 30.2 pg (27.0-33.0); MEAN CORPUSCULAR HGB CONC 31.1 g/dL (32.0-36.0); MEAN CORPUSCULAR VOLUME 97.2 fL (79-99); NUCLEATED RED BLOOD CELLS 0.2 % (0.0-0.19); PLATELET COUNT (AUTO) 357 K/uL (130-400); RED BLOOD CELL COUNT(AUTO) 2.15 MIL/uL (4.50-6.20); WHITE BLOOD COUNT (AUTO) 12.6 K/uL (4.8-10.8)
[2020-02-15 05:10] LABS: HEMATOCRIT 20.9 % (42-54)
[2020-02-15 05:11] LABS: INR 0.95 (0.85-1.15); PARTIAL THROMBOPLASTIN TIME 26.8 SEC (26.3-35.5); PROTHROMBIN TIME 10.3 SEC (9.6-11.6)
[2020-02-15 05:26] LABS: ALBUMIN 1.8 g/dL (3.5-5.0); BILIRUBIN,TOTAL 0.3 mg/dL (0.2-1.0); CREATININE 1.2 mg/dL (0.5-1.5); CRP QUANTITATIVE 52.7 mg/L (0.00-9.0); MAGNESIUM 3.1 mg/dL (1.80-2.40); PHOSPHORUS 2.9 mg/dL (2.5-4.9); POTASSIUM 4.7 mmol/L (3.5-5.1); TOTAL PROTEIN, SERUM 5.7 g/dL (6.0-8.3)
[2020-02-15 05:40] LABS: BAND NEUTROPHILS % (MANUAL) 5 % (0-2); LYMPHOCYTES % (MANUAL) 3 % (22-44); MONOCYTES % (MANUAL) 2 % (2-9); SEGMENTED NEUTROPHILS % 90 % (40-70)
[2020-02-15 05:41] LABS: MAN.DIFF COMMENT-IMPRESSION MANUAL DIFFERENTIAL
[2020-02-15] MEDS: INSULIN HUMULIN R 100 UNIT/ML 3ML SQ SCH ×4 (06:07→23:37)
[2020-02-15 06:16] LABS: HEMATOCRIT 32.9 % (42-54); MEAN CORPUSCULAR HEMOGLOBIN 30.5 pg (27.0-33.0); MEAN CORPUSCULAR HGB CONC 31.3 g/dL (32.0-36.0); MEAN CORPUSCULAR VOLUME 97.3 fL (79-99); NUCLEATED RED BLOOD CELLS 0.4 % (0.0-0.19); PLATELET COUNT (AUTO) 286 K/uL (130-400); RED BLOOD CELL COUNT(AUTO) 3.38 MIL/uL (4.50-6.20); WHITE BLOOD COUNT (AUTO) 10.5 K/uL (4.8-10.8)
--- NOTE | 2020-02-15 06:43 | NUR ---
llab result0 noted pt HGB 6.5 and HCT 20.9 however 1/2 of yeasterday result therefore repeat lab sent . awaiting results of repeat at this time. pt central line site. bleeding dressing change twice this shift no other s/s of bleeding noted.
[2020-02-15] MEDS: ZINC SULFATE 220 CAPSULE PO SCH (07:51)
[2020-02-15] MEDS: FAMOTIDINE/PF 20 MG/2 ML VIAL IV SCH ×2 (07:51→20:38)
[2020-02-15] MEDS: ASCORBIC ACID 500 MG TAB PO SCH (07:51)
[2020-02-15] MEDS: ENOXAPARIN SODIUM 120 MG/0.8ML SQ SCH (07:52)
[2020-02-15 08:28] LABS: BAND NEUTROPHILS % (MANUAL) 1 % (0-2); LYMPHOCYTES % (MANUAL) 4 % (22-44); MONOCYTES % (MANUAL) 1 % (2-9); PLATELET MORPHOLOGY COMMENT ADEQUATE; SEGMENTED NEUTROPHILS % 94 % (40-70)
[2020-02-15 09:21] LABS: ABG BASE EXCESS 3.8 mmol/L (-2.0-3.0); ABG HCO3 28.1 mmol/L (21.0-28.0); ABG OXYGEN SATURATION 96.7 % (95.0-99.0); ABG PCO2 41 mmHg (35-48)
[2020-02-15] MEDS ORDERED: PHARMACY COMMUNICATION MISC SCH (14:00)
[2020-02-15] MEDS ORDERED: DEXTROSE 5% IV SCH (14:30)
[2020-02-15] MEDS ORDERED: VECURONIUM BROMIDE IV SCH (14:30)
[2020-02-15] MEDS ORDERED: WATER IV SCH (14:30)
[2020-02-15] MEDS: DOCUSATE NA 100MG/10ML UDCUP PO SCH (14:58)
[2020-02-15] MEDS: ARTIFICAL TEARS SOL 15 ML OU SCH ×2 (14:59→20:38)
[2020-02-15 18:38] LABS: HEMATOCRIT 32.9 % (42-54)
[2020-02-15] MEDS ORDERED: NOREPINEPHRINE 4MG/NS 250ML 0 ML IV ONE (19:08)
[2020-02-15] MEDS: PROPOFOL 1000 MG/100 ML IV PRN (19:48)
[2020-02-16] VITALS (79 sets, daily range): BP systolic 90–160; BP diastolic 49–83
[2020-02-16] MEDS: MIDAZOLAM 50MG-0.9% NS 50ML 50 ML IV SCH ×3 (02:21→21:34)
[2020-02-16] MEDS: FENTANYL 1000MCG+NS 100ML IV.SOLN IV SCH ×2 (02:25→06:51)
[2020-02-16] MEDS: METHYLPREDNISOLONE SOD SUCC 125MG/2ML VIAL IVP SCH ×4 (03:09→23:34)
[2020-02-16 05:03] LABS: BASOPHILS % (AUTO) 0.1 % (0.0-5.0); HEMATOCRIT 30.5 % (42-54); LYMPHOCYTES % (AUTO) 7.3 % (21.0-51.0); MEAN CORPUSCULAR HEMOGLOBIN 30.2 pg (27.0-33.0); MEAN CORPUSCULAR HGB CONC 30.2 g/dL (32.0-36.0); NEUTROPHILS % (AUTO) 86.2 % (40.0-77.0); NUCLEATED RED BLOOD CELLS 0.6 % (0.0-0.19); PLATELET COUNT (AUTO) 234 K/uL (130-400); RED BLOOD CELL COUNT(AUTO) 3.05 MIL/uL (4.50-6.20); RED CELL DISTRIBUTION WIDTH 15.2 % (11.0-15.5); WHITE BLOOD COUNT (AUTO) 8.3 K/uL (4.8-10.8)
[2020-02-16 05:20] LABS: INR 0.93 (0.85-1.15); PARTIAL THROMBOPLASTIN TIME 23.5 SEC (26.3-35.5); PROTHROMBIN TIME 10.1 SEC (9.6-11.6)
[2020-02-16 05:52] LABS: ALBUMIN 1.9 g/dL (3.5-5.0); BILIRUBIN,TOTAL 0.4 mg/dL (0.2-1.0); CREATININE 1.1 mg/dL (0.5-1.5); CRP QUANTITATIVE 33.1 mg/L (0.00-9.0); POTASSIUM 4.5 mmol/L (3.5-5.1); TOTAL PROTEIN, SERUM 5.5 g/dL (6.0-8.3)
[2020-02-16] MEDS: INSULIN HUMULIN R 100 UNIT/ML 3ML SQ SCH ×3 (06:36→18:00)
[2020-02-16] MEDS: PROPOFOL 1000 MG/100 ML IV PRN ×3 (06:47→21:14)
[2020-02-16] MEDS: FAMOTIDINE/PF 20 MG/2 ML VIAL IV SCH ×2 (07:59→20:13)
[2020-02-16] MEDS: DOCUSATE NA 100MG/10ML UDCUP PO SCH (07:59)
[2020-02-16] MEDS: ASCORBIC ACID 500 MG TAB PO SCH (07:59)
[2020-02-16] MEDS: ZINC SULFATE 220 CAPSULE PO SCH (07:59)
[2020-02-16] MEDS ORDERED: NOREPINEPHRINE 4MG/NS 250ML 250 ML IV ONE (09:06)
[2020-02-16] MEDS: ARTIFICAL TEARS SOL 15 ML OU SCH ×2 (11:30→20:14)
[2020-02-16] MEDS ORDERED: DESMOPRESSIN ACETATE IJ SCH (14:00)
[2020-02-16] MEDS ORDERED: SODIUM CHLORIDE 0.9% IJ SCH (14:00)
[2020-02-16] MEDS: DEXTROSE 5%-WATER 1,000 ML IV SCH (15:37)
[2020-02-16] MEDS: NOREPINEPHRINE BITARTRATE 4 MG in DEXTROSE 5%-WATER 250 ML IV SCH (18:56)
[2020-02-17] VITALS (76 sets, daily range): BP systolic 101–146; BP diastolic 54–92
[2020-02-17] MEDS: FENTANYL 1000MCG+NS 100ML IV.SOLN IV SCH ×2 (01:38→07:43)
[2020-02-17 03:50] LABS: BASOPHILS % (AUTO) 0.2 % (0.0-5.0); HEMATOCRIT 32.5 % (42-54); LYMPHOCYTES % (AUTO) 6.8 % (21.0-51.0); MEAN CORPUSCULAR HEMOGLOBIN 30.5 pg (27.0-33.0); MEAN CORPUSCULAR HGB CONC 31.4 g/dL (32.0-36.0); MEAN CORPUSCULAR VOLUME 97.3 fL (79-99); NEUTROPHILS % (AUTO) 86.6 % (40.0-77.0); NUCLEATED RED BLOOD CELLS 0.4 % (0.0-0.19); PLATELET COUNT (AUTO) 238 K/uL (130-400); RED BLOOD CELL COUNT(AUTO) 3.34 MIL/uL (4.50-6.20); RED CELL DISTRIBUTION WIDTH 14.9 % (11.0-15.5); WHITE BLOOD COUNT (AUTO) 12.4 K/uL (4.8-10.8)
[2020-02-17 04:14] LABS: ALBUMIN 1.9 g/dL (3.5-5.0); BILIRUBIN,TOTAL 0.4 mg/dL (0.2-1.0); CREATININE 1.1 mg/dL (0.5-1.5); CRP QUANTITATIVE 20.9 mg/L (0.00-9.0); POTASSIUM 4.5 mmol/L (3.5-5.1); TOTAL PROTEIN, SERUM 5.5 g/dL (6.0-8.3)
[2020-02-17] MEDS: DEXTROSE 5%-WATER 1,000 ML IV SCH (05:59)
[2020-02-17] MEDS: INSULIN HUMULIN R 100 UNIT/ML 3ML SQ SCH ×4 (06:06→18:37)
[2020-02-17] MEDS: FAMOTIDINE/PF 20 MG/2 ML VIAL IV SCH ×2 (07:42→20:36)
[2020-02-17] MEDS: ASCORBIC ACID 500 MG TAB PO SCH (07:42)
[2020-02-17] MEDS: DOCUSATE NA 100MG/10ML UDCUP PO SCH (07:42)
[2020-02-17] MEDS: ZINC SULFATE 220 CAPSULE PO SCH (07:42)
[2020-02-17] MEDS: METHYLPREDNISOLONE SOD SUCC 125MG/2ML VIAL IVP SCH ×2 (09:00→16:11)
[2020-02-17] MEDS ORDERED: ENOXAPARIN SODIUM 60 MG/0.6 ML SQ SCH (09:00)
[2020-02-17] MEDS: ARTIFICAL TEARS SOL 15 ML OU SCH ×2 (09:01→20:36)
[2020-02-17 09:49] LABS: ABG BASE EXCESS 1.1 mmol/L (-2.0-3.0); ABG HCO3 24.8 mmol/L (21.0-28.0); ABG OXYGEN SATURATION 98.1 % (95.0-99.0); ABG PCO2 36 mmHg (35-48)
[2020-02-17] MEDS ORDERED: FUROSEMIDE 10 MG/ML 4ML VIAL IV SCH (12:30)
[2020-02-17 13:14] LABS: POTASSIUM 4.8 mmol/L (3.5-5.1)
--- NOTE | 2020-02-17 13:53 | NUR ---
Dr. Poe made aware of L eye swelling and drainage. order for levofloxacin eye drops to L eye 2 drops q4h.
[2020-02-17] MEDS ORDERED: PHARMACY COMMUNICATION MISC SCH (14:15)
[2020-02-17] MEDS: MIDAZOLAM 50MG-0.9% NS 50ML 50 ML IV SCH ×2 (14:22→22:14)
[2020-02-17] MEDS ORDERED: OFLOXACIN 0.3% 5ML DROPS OS SCH (17:00)
--- NOTE | 2020-02-17 18:57 | NUR ---
report endorsed to MARY Green
[2020-02-18] VITALS (49 sets, daily range): BP systolic 98–147; BP diastolic 52–89
[2020-02-18] MEDS: PROPOFOL 1000 MG/100 ML IV PRN ×2 (00:05→17:25)
[2020-02-18] MEDS: METHYLPREDNISOLONE SOD SUCC 125MG/2ML VIAL IVP SCH ×3 (00:07→17:25)
[2020-02-18] MEDS: INSULIN HUMULIN R 100 UNIT/ML 3ML SQ SCH ×4 (01:31→17:50)
[2020-02-18] MEDS: FENTANYL 2500MCG+NS 250ML IV.SOLN IV SCH ×2 (01:33→17:25)
[2020-02-18 04:34] LABS: BASOPHILS % (AUTO) 0.2 % (0.0-5.0); LYMPHOCYTES % (AUTO) 6.8 % (21.0-51.0); MEAN CORPUSCULAR HEMOGLOBIN 30.9 pg (27.0-33.0); MEAN CORPUSCULAR VOLUME 96.5 fL (79-99); NEUTROPHILS % (AUTO) 86.9 % (40.0-77.0); NUCLEATED RED BLOOD CELLS 0.2 % (0.0-0.19); PLATELET COUNT (AUTO) 207 K/uL (130-400); RED BLOOD CELL COUNT(AUTO) 3.11 MIL/uL (4.50-6.20); RED CELL DISTRIBUTION WIDTH 14.6 % (11.0-15.5); WHITE BLOOD COUNT (AUTO) 12.8 K/uL (4.8-10.8)
[2020-02-18 05:05] LABS: ALBUMIN 2.1 g/dL (3.5-5.0); BILIRUBIN,TOTAL 0.5 mg/dL (0.2-1.0); CREATININE 1.1 mg/dL (0.5-1.5); CRP QUANTITATIVE 12.7 mg/L (0.00-9.0); POTASSIUM 4.5 mmol/L (3.5-5.1); TOTAL PROTEIN, SERUM 5.9 g/dL (6.0-8.3)
[2020-02-18] MEDS ORDERED: PHARMACY COMMUNICATION MISC SCH (06:45)
[2020-02-18 08:56] LABS: ABG BASE EXCESS 3.4 mmol/L (-2.0-3.0); ABG HCO3 26.8 mmol/L (21.0-28.0); ABG OXYGEN SATURATION 98.3 % (95.0-99.0); ABG PCO2 37 mmHg (35-48)
[2020-02-18] MEDS: FAMOTIDINE/PF 20 MG/2 ML VIAL IV SCH ×2 (09:20→20:13)
[2020-02-18] MEDS: ZINC SULFATE 220 CAPSULE PO SCH (09:20)
[2020-02-18] MEDS: DOCUSATE NA 100MG/10ML UDCUP PO SCH (09:20)
[2020-02-18] MEDS: MIDAZOLAM 50MG-0.9% NS 50ML 50 ML IV SCH ×2 (09:20→23:14)
[2020-02-18] MEDS: ASCORBIC ACID 500 MG TAB PO SCH (09:20)
[2020-02-18] MEDS: ARTIFICAL TEARS SOL 15 ML OU SCH ×2 (09:22→20:15)
--- NOTE | 2020-02-18 13:10 | NUR ---
PHONE CALL UPDATED PATIENTS VENU ON PATIENT STATUS AND GAVE OPPORTUNITY TO ASK QUESTIONS. 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
[2020-02-18] MEDS: INSULIN GLARGINE 100 UNITS/ML 10 ML VIAL SQ SCH (20:15)
[2020-02-18] MEDS: ENOXAPARIN SODIUM 60 MG/0.6 ML SQ SCH (21:41)
[2020-02-19] VITALS (43 sets, daily range): BP systolic 107–126; BP diastolic 54–73
[2020-02-19] MEDS: METHYLPREDNISOLONE SOD SUCC 125MG/2ML VIAL IVP SCH ×3 (00:18→17:06)
[2020-02-19] MEDS: INSULIN HUMULIN R 100 UNIT/ML 3ML SQ SCH ×4 (00:23→16:55)
[2020-02-19] MEDS: FENTANYL 2500MCG+NS 250ML IV.SOLN IV SCH ×2 (02:25→18:19)
[2020-02-19 05:39] LABS: HEMATOCRIT 26.4 % (42-54); MEAN CORPUSCULAR HEMOGLOBIN 30.6 pg (27.0-33.0); MEAN CORPUSCULAR HGB CONC 31.4 g/dL (32.0-36.0); MEAN CORPUSCULAR VOLUME 97.4 fL (79-99); NUCLEATED RED BLOOD CELLS 0.5 % (0.0-0.19); PLATELET COUNT (AUTO) 202 K/uL (130-400); RED BLOOD CELL COUNT(AUTO) 2.71 MIL/uL (4.50-6.20); RED CELL DISTRIBUTION WIDTH 14.3 % (11.0-15.5); WHITE BLOOD COUNT (AUTO) 9.9 K/uL (4.8-10.8)
[2020-02-19 05:52] LABS: BAND NEUTROPHILS % (MANUAL) 5 % (0-2); LYMPHOCYTES % (MANUAL) 12 % (22-44); MAN.DIFF COMMENT-IMPRESSION MANUAL DIFFERENTIAL; PLATELET MORPHOLOGY COMMENT ADEQUATE; SEGMENTED NEUTROPHILS % 83 % (40-70)
[2020-02-19 06:21] LABS: ALBUMIN 1.9 g/dL (3.5-5.0); BILIRUBIN,TOTAL 0.4 mg/dL (0.2-1.0); CRP QUANTITATIVE 6.1 mg/L (0.00-9.0); POTASSIUM 4.5 mmol/L (3.5-5.1); TOTAL PROTEIN, SERUM 5.4 g/dL (6.0-8.3)
[2020-02-19] MEDS: FAMOTIDINE/PF 20 MG/2 ML VIAL IV SCH ×2 (10:10→20:35)
[2020-02-19] MEDS: PROPOFOL 1000 MG/100 ML IV PRN ×2 (10:10→18:18)
[2020-02-19] MEDS: MIDAZOLAM 50MG-0.9% NS 50ML 50 ML IV SCH ×3 (10:10→19:56)
[2020-02-19] MEDS: ASCORBIC ACID 500 MG TAB PO SCH (10:10)
[2020-02-19] MEDS: ZINC SULFATE 220 CAPSULE PO SCH (10:12)
[2020-02-19] MEDS: DOCUSATE NA 100MG/10ML UDCUP PO SCH (10:12)
[2020-02-19] MEDS: ARTIFICAL TEARS SOL 15 ML OU SCH ×2 (10:22→20:39)
[2020-02-19 10:25] LABS: ABG BASE EXCESS 1.6 mmol/L (-2.0-3.0); ABG HCO3 24.7 mmol/L (21.0-28.0); ABG PCO2 34 mmHg (35-48)
[2020-02-19] MEDS: CIPROFLOXACIN HCL 0.3% 5ML DROPS OS SCH ×4 (13:07→22:30)
[2020-02-19] MEDS: ENOXAPARIN SODIUM 60 MG/0.6 ML SQ SCH (13:07)
[2020-02-19] MEDS: ACETAMINOPHEN 325 MG TAB PO PRN (17:10)
[2020-02-19] MEDS: INSULIN GLARGINE 100 UNITS/ML 10 ML VIAL SQ SCH (20:38)
[2020-02-20] VITALS (41 sets, daily range): BP systolic 82–191; BP diastolic 45–127
[2020-02-20] MEDS: CIPROFLOXACIN HCL 0.3% 5ML DROPS OS SCH ×6 (01:58→21:56)
[2020-02-20] MEDS: INSULIN HUMULIN R 100 UNIT/ML 3ML SQ SCH ×5 (01:58→23:25)
[2020-02-20] MEDS: ACETAMINOPHEN 325 MG TAB PO PRN (01:59)
[2020-02-20] MEDS: METHYLPREDNISOLONE SOD SUCC 125MG/2ML VIAL IVP SCH ×2 (02:08→08:50)
[2020-02-20] MEDS: FENTANYL 2500MCG+NS 250ML IV.SOLN IV SCH ×3 (02:57→21:47)
[2020-02-20 04:08] LABS: BASOPHILS % (AUTO) 0.1 % (0.0-5.0); EOSINOPHILS % (AUTO) 0.4 % (0.0-8.0); HEMATOCRIT 27.7 % (42-54); LYMPHOCYTES % (AUTO) 4.7 % (21.0-51.0); MEAN CORPUSCULAR HEMOGLOBIN 31.9 pg (27.0-33.0); MEAN CORPUSCULAR HGB CONC 32.5 g/dL (32.0-36.0); MEAN CORPUSCULAR VOLUME 98.2 fL (79-99); MONOCYTES % (AUTO) 4.2 % (3.0-13.0); NEUTROPHILS % (AUTO) 86.9 % (40.0-77.0); NUCLEATED RED BLOOD CELLS 1.7 % (0.0-0.19); PLATELET COUNT (AUTO) 185 K/uL (130-400); RED BLOOD CELL COUNT(AUTO) 2.82 MIL/uL (4.50-6.20); RED CELL DISTRIBUTION WIDTH 14.6 % (11.0-15.5); WHITE BLOOD COUNT (AUTO) 14.5 K/uL (4.8-10.8)
[2020-02-20 04:25] LABS: BILIRUBIN,TOTAL 0.6 mg/dL (0.2-1.0); CRP QUANTITATIVE 9.9 mg/L (0.00-9.0); POTASSIUM 4.3 mmol/L (3.5-5.1); TOTAL PROTEIN, SERUM 5.5 g/dL (6.0-8.3)
[2020-02-20] MEDS: PROPOFOL 1000 MG/100 ML IV PRN ×2 (05:42→17:15)
[2020-02-20] MEDS: MIDAZOLAM 50MG-0.9% NS 50ML 50 ML IV SCH ×2 (05:42→10:46)
[2020-02-20 07:58] LABS: ABG BASE EXCESS -2.1 mmol/L (-2.0-3.0); ABG HCO3 22.3 mmol/L (21.0-28.0); ABG OXYGEN SATURATION 93.6 % (95.0-99.0); ABG PCO2 37 mmHg (35-48)
[2020-02-20] MEDS: ASCORBIC ACID 500 MG TAB PO SCH (08:50)
[2020-02-20] MEDS: ZINC SULFATE 220 CAPSULE PO SCH (08:50)
[2020-02-20] MEDS: DOCUSATE NA 100MG/10ML UDCUP PO SCH (08:50)
[2020-02-20] MEDS: FAMOTIDINE/PF 20 MG/2 ML VIAL IV SCH ×2 (08:50→20:38)
[2020-02-20] MEDS: ENOXAPARIN SODIUM 60 MG/0.6 ML SQ SCH (08:51)
[2020-02-20] MEDS: ARTIFICAL TEARS SOL 15 ML OU SCH ×2 (08:51→20:38)
--- NOTE | 2020-02-20 14:16 | NUR ---
RD FOLLOW UP Pt tolerating Tube Feeding, Vital AF 1.2 @35mls/hr. WBC 14.5, BUN 39, BG 246. Propofol in place. Humulin R, Fentanyl, Zinc, Vit C in place. Recommend adv rate as tolerated by 5 mls every 5 hrs to goal of 45mls/hr, as medically feasible. RD to continue to monitor. Please notify RD as additional nutrition concerns arise. Thank you.
[2020-02-20] MEDS: INSULIN GLARGINE 100 UNITS/ML 10 ML VIAL SQ SCH (20:32)
[2020-02-20] MEDS: METHYLPREDNISOLONE SOD SUCC 40MG/ML 1ML IVP SCH (20:38)
[2020-02-21] VITALS (44 sets, daily range): BP systolic 74–156; BP diastolic 39–114
[2020-02-21] MEDS: PROPOFOL 1000 MG/100 ML IV PRN ×4 (00:47→21:52)
[2020-02-21] MEDS: MIDAZOLAM 50MG-0.9% NS 50ML 50 ML IV SCH (00:47)
[2020-02-21] MEDS: CIPROFLOXACIN HCL 0.3% 5ML DROPS OS SCH ×6 (02:42→22:10)
[2020-02-21 04:34] LABS: HEMATOCRIT 30.3 % (42-54); MEAN CORPUSCULAR HEMOGLOBIN 31.1 pg (27.0-33.0); MEAN CORPUSCULAR HGB CONC 31.7 g/dL (32.0-36.0); MEAN CORPUSCULAR VOLUME 98.1 fL (79-99); NUCLEATED RED BLOOD CELLS 1.9 % (0.0-0.19); PLATELET COUNT (AUTO) 156 K/uL (130-400); RED BLOOD CELL COUNT(AUTO) 3.09 MIL/uL (4.50-6.20); RED CELL DISTRIBUTION WIDTH 15.2 % (11.0-15.5); WHITE BLOOD COUNT (AUTO) 10.8 K/uL (4.8-10.8)
[2020-02-21] MEDS: NOREPINEPHRINE BITARTRATE 4 MG in DEXTROSE 5%-WATER 250 ML IV SCH (04:36)
[2020-02-21 04:47] LABS: BAND NEUTROPHILS % (MANUAL) 11 % (0-2); LYMPHOCYTES % (MANUAL) 11 % (22-44); MAN.DIFF COMMENT-IMPRESSION MANUAL DIFFERENTIAL; MONOCYTES % (MANUAL) 3 % (2-9); SEGMENTED NEUTROPHILS % 75 % (40-70)
[2020-02-21 04:48] LABS: PLATELET MORPHOLOGY COMMENT ADEQUATE
[2020-02-21] MEDS: INSULIN HUMULIN R 100 UNIT/ML 3ML SQ SCH ×4 (05:32→23:14)
[2020-02-21 05:43] LABS: CRP QUANTITATIVE 94.8 mg/L (0.00-9.0); POTASSIUM 3.9 mmol/L (3.5-5.1)
[2020-02-21] MEDS: FENTANYL 2500MCG+NS 250ML IV.SOLN IV SCH ×2 (05:59→14:12)
[2020-02-21] MEDS: ACETAMINOPHEN 325 MG TAB PO PRN (08:11)
[2020-02-21] MEDS: ZINC SULFATE 220 CAPSULE PO SCH (08:11)
[2020-02-21] MEDS: ASCORBIC ACID 500 MG TAB PO SCH (08:11)
[2020-02-21] MEDS: FAMOTIDINE/PF 20 MG/2 ML VIAL IV SCH ×2 (08:11→19:56)
[2020-02-21] MEDS: ARTIFICAL TEARS SOL 15 ML OU SCH ×2 (08:12→20:03)
[2020-02-21] MEDS: DOCUSATE NA 100MG/10ML UDCUP PO SCH (08:12)
[2020-02-21] MEDS: METHYLPREDNISOLONE SOD SUCC 40MG/ML 1ML IVP SCH ×2 (08:12→19:56)
[2020-02-21] MEDS: ENOXAPARIN SODIUM 60 MG/0.6 ML SQ SCH (09:00)
--- NOTE | 2020-02-21 09:00 | NUR ---
SEDATION WAS WEANED OFF. PT UNABLE TO TOLERATE. PT BECAME TACHYPNEIC, TACHYCARIC (HR 130-140S), AND O2 SATS DROPPED TO 88%. DR. OTT MADE AWARE OF CONDITION. ORDERED PRECEDIX DRIP AND TO BE TAKEN OFF VERSED.
[2020-02-21 10:31] LABS: ABG BASE EXCESS -0.3 mmol/L (-2.0-3.0); ABG HCO3 23.2 mmol/L (21.0-28.0); ABG OXYGEN SATURATION 92.8 % (95.0-99.0); ABG PCO2 34 mmHg (35-48)
[2020-02-21] MEDS: DEXMEDETOMIDINE HCL 400 MCG in SODIUM CHLORIDE 0.9% 100 ML IV SCH ×3 (11:21→18:30)
[2020-02-21] MEDS ORDERED: LACTULOSE 20 GM/30 ML UDCUP PO PRN (12:30)
[2020-02-21] MEDS: LINEZOLID 600 MG/ISO-OSM 300 ML IV SCH (14:08)
[2020-02-21] MEDS: CEFEPIME HCL 1 GM VIAL IVP SCH ×2 (14:08→22:11)
[2020-02-21] MEDS: INSULIN GLARGINE 100 UNITS/ML 10 ML VIAL SQ SCH (20:10)
[2020-02-21] MEDS ORDERED: MIDAZOLAM 50MG-0.9% NS 50ML 50 ML BAG IV STA (21:10)
[2020-02-22] VITALS (83 sets, daily range): BP systolic 94–129; BP diastolic 41–81
[2020-02-22] MEDS ORDERED: MIDAZOLAM 50MG-0.9% NS 50ML 50 ML BAG IV SCH ×2 (00:30)
[2020-02-22] MEDS: FENTANYL 2500MCG+NS 250ML IV.SOLN IV SCH ×3 (01:00→18:41)
[2020-02-22] MEDS ORDERED: MIDAZOLAM HCL 50 MG in SODIUM CHLORIDE 0.9% 50 ML IV SCH (01:15)
[2020-02-22] MEDS: LINEZOLID 600 MG/ISO-OSM 300 ML IV SCH ×2 (02:10→14:57)
[2020-02-22] MEDS: CIPROFLOXACIN HCL 0.3% 5ML DROPS OS SCH ×6 (02:10→20:34)
[2020-02-22] MEDS: PROPOFOL 1000 MG/100 ML IV PRN ×2 (03:09→18:21)
[2020-02-22] MEDS: DEXMEDETOMIDINE HCL 400 MCG in SODIUM CHLORIDE 0.9% 100 ML IV SCH ×4 (03:11→16:16)
[2020-02-22] MEDS: INSULIN HUMULIN R 100 UNIT/ML 3ML SQ SCH ×4 (05:32→23:53)
[2020-02-22] MEDS: CEFEPIME HCL 1 GM VIAL IVP SCH (05:35)
[2020-02-22 06:22] LABS: BASOPHILS % (AUTO) 0.2 % (0.0-5.0); HEMATOCRIT 38.3 % (42-54); LYMPHOCYTES % (AUTO) 9.8 % (21.0-51.0); MEAN CORPUSCULAR HEMOGLOBIN 31.2 pg (27.0-33.0); MEAN CORPUSCULAR HGB CONC 32.1 g/dL (32.0-36.0); MEAN CORPUSCULAR VOLUME 97.2 fL (79-99); MONOCYTES % (AUTO) 3.3 % (3.0-13.0); NEUTROPHILS % (AUTO) 86.3 % (40.0-77.0); NUCLEATED RED BLOOD CELLS 0.7 % (0.0-0.19); PLATELET COUNT (AUTO) 104 K/uL (130-400); RED BLOOD CELL COUNT(AUTO) 3.94 MIL/uL (4.50-6.20); WHITE BLOOD COUNT (AUTO) 4.5 K/uL (4.8-10.8)
[2020-02-22 06:42] LABS: CREATININE 1.1 mg/dL (0.5-1.5); MAGNESIUM 2.1 mg/dL (1.80-2.40); POTASSIUM 4.2 mmol/L (3.5-5.1)
[2020-02-22] MEDS: DOCUSATE NA 100MG/10ML UDCUP PO SCH (07:56)
[2020-02-22] MEDS: METHYLPREDNISOLONE SOD SUCC 40MG/ML 1ML IVP SCH ×2 (07:56→20:33)
[2020-02-22] MEDS: ACETAMINOPHEN 325 MG TAB PO PRN ×2 (07:56→14:03)
[2020-02-22] MEDS: ASCORBIC ACID 500 MG TAB PO SCH (07:56)
[2020-02-22] MEDS: FAMOTIDINE/PF 20 MG/2 ML VIAL IV SCH ×2 (07:56→20:34)
[2020-02-22 07:57] LABS: ABG BASE EXCESS 2.4 mmol/L (-2.0-3.0); ABG PCO2 37 mmHg (35-48)
[2020-02-22] MEDS: ZINC SULFATE 220 CAPSULE PO SCH (07:58)
[2020-02-22] MEDS: ARTIFICAL TEARS SOL 15 ML OU SCH ×2 (07:59→20:35)
[2020-02-22 08:05] LABS: CRP QUANTITATIVE 326.8 mg/L (0.00-9.0)
[2020-02-22] MEDS ORDERED: CEFEPIME HCL 2 GM VIAL IVP SCH (08:30)
[2020-02-22] MEDS ORDERED: MIDAZOLAM 50MG-0.9% NS 50ML 50 ML IV SCH (08:30)
[2020-02-22] MEDS: ENOXAPARIN SODIUM 60 MG/0.6 ML SQ SCH (09:00)
--- NOTE | 2020-02-22 11:00 | NUR ---
Dr. Poe made aware of plt level 104. As per MD knight to continue lovenox and zyvox at this time. RN will monitor.
[2020-02-22] MEDS: FLUCONAZOLE 200 MG/NS 100 ML 100 ML IV SCH (11:46)
[2020-02-22] MEDS: MEROPENEM 1 GM VIAL IVP SCH ×2 (11:46→18:22)
[2020-02-22] MEDS ORDERED: NOREPINEPHRINE 4MG/NS 250ML 250 ML IV ONE (12:09)
--- NOTE | 2020-02-22 13:05 | NUR ---
Dr. Poe made aware of temp 102-103. As per MD continue acetaminophen, ice packs and cooling blanket.
--- NOTE | 2020-02-22 13:10 | NUR ---
pt placed on cooling blanket with rectal temp probe in place. current temp 104. RN will monitor.
[2020-02-22] MEDS: INSULIN GLARGINE 100 UNITS/ML 10 ML VIAL SQ SCH (20:47)
[2020-02-23] VITALS (65 sets, daily range): BP systolic 99–147; BP diastolic 44–97
[2020-02-23] MEDS: DEXMEDETOMIDINE HCL 400 MCG in SODIUM CHLORIDE 0.9% 100 ML IV SCH ×2 (00:38→05:11)
[2020-02-23] MEDS: MIDAZOLAM 50MG-0.9% NS 50ML 50 ML BAG IV SCH ×3 (00:38→21:41)
[2020-02-23] MEDS: CIPROFLOXACIN HCL 0.3% 5ML DROPS OS SCH ×6 (02:46→22:30)
[2020-02-23] MEDS: LINEZOLID 600 MG/ISO-OSM 300 ML IV SCH ×2 (02:51→15:11)
[2020-02-23] MEDS: MEROPENEM 1 GM VIAL IVP SCH ×3 (02:51→18:10)
[2020-02-23 04:43] LABS: HEMATOCRIT 26.7 % (42-54); MEAN CORPUSCULAR HEMOGLOBIN 31.1 pg (27.0-33.0); MEAN CORPUSCULAR VOLUME 94.3 fL (79-99); PLATELET COUNT (AUTO) 112 K/uL (130-400); RED BLOOD CELL COUNT(AUTO) 2.83 MIL/uL (4.50-6.20); RED CELL DISTRIBUTION WIDTH 14.5 % (11.0-15.5); WHITE BLOOD COUNT (AUTO) 6.2 K/uL (4.8-10.8)
[2020-02-23] MEDS: FENTANYL 2500MCG+NS 250ML IV.SOLN IV SCH ×2 (04:56→21:41)
[2020-02-23] MEDS: PROPOFOL 1000 MG/100 ML IV PRN ×3 (04:57→21:42)
[2020-02-23] MEDS: INSULIN HUMULIN R 100 UNIT/ML 3ML SQ SCH ×3 (05:35→18:12)
[2020-02-23 06:06] LABS: ALBUMIN 1.6 g/dL (3.5-5.0); BILIRUBIN,TOTAL 0.6 mg/dL (0.2-1.0); CREATININE 0.9 mg/dL (0.5-1.5); TOTAL PROTEIN, SERUM 5.8 g/dL (6.0-8.3)
[2020-02-23 07:41] LABS: LYMPHOCYTES % (MANUAL) 4 % (22-44); MAN.DIFF COMMENT-IMPRESSION MANUAL DIFFERENTIAL; PLATELET MORPHOLOGY COMMENT SLIGHTLY DECREASED; SEGMENTED NEUTROPHILS % 96 % (40-70)
[2020-02-23] MEDS: DOCUSATE NA 100MG/10ML UDCUP PO SCH (07:55)
[2020-02-23] MEDS: FAMOTIDINE/PF 20 MG/2 ML VIAL IV SCH ×2 (07:55→21:40)
[2020-02-23] MEDS: ENOXAPARIN SODIUM 60 MG/0.6 ML SQ SCH (07:56)
[2020-02-23] MEDS: METHYLPREDNISOLONE SOD SUCC 40MG/ML 1ML IVP SCH ×2 (07:56→21:40)
[2020-02-23] MEDS: ZINC SULFATE 220 CAPSULE PO SCH (07:56)
[2020-02-23] MEDS: ASCORBIC ACID 500 MG TAB PO SCH (07:56)
[2020-02-23] MEDS: ARTIFICAL TEARS SOL 15 ML OU SCH ×2 (08:17→21:40)
[2020-02-23] MEDS: FLUCONAZOLE 200 MG/NS 100 ML 100 ML IV SCH (10:05)
[2020-02-23 11:33] LABS: ABG BASE EXCESS 0.6 mmol/L (-2.0-3.0); ABG HCO3 23.9 mmol/L (21.0-28.0); ABG OXYGEN SATURATION 98.8 % (95.0-99.0); ABG PCO2 34 mmHg (35-48)
--- NOTE | 2020-02-23 12:23 | NUR ---
Dr. Poe at bedside. As per MD start weaning down sedation and fi02.
--- NOTE | 2020-02-23 16:11 | NUR ---
Dr. Poe made aware of repeat hgb level. As per MD hold lovenox for one day and reassess tomorrow.
[2020-02-23] MEDS ORDERED: INSULIN NPH 100 UNIT/ML 3ML SQ SCH (16:30)
[2020-02-23] MEDS: INSULIN NPH 100 UNIT/ML 3ML SQ SCH (18:00)
--- NOTE | 2020-02-23 19:01 | NUR ---
report endorsed to MARY Ramirez
[2020-02-24] VITALS (36 sets, daily range): BP systolic 96–179; BP diastolic 44–117
[2020-02-24] MEDS: INSULIN HUMULIN R 100 UNIT/ML 3ML SQ SCH ×5 (00:36→23:29)
[2020-02-24] MEDS: DEXMEDETOMIDINE HCL 400 MCG in SODIUM CHLORIDE 0.9% 100 ML IV SCH ×4 (00:42→21:08)
[2020-02-24] MEDS: LINEZOLID 600 MG/ISO-OSM 300 ML IV SCH ×2 (03:53→15:22)
[2020-02-24] MEDS: MEROPENEM 1 GM VIAL IVP SCH ×3 (03:53→17:32)
[2020-02-24] MEDS: CIPROFLOXACIN HCL 0.3% 5ML DROPS OS SCH ×6 (03:53→23:28)
[2020-02-24 04:03] LABS: HEMATOCRIT 25.6 % (42-54); LYMPHOCYTES % (AUTO) 12.1 % (21.0-51.0); MEAN CORPUSCULAR HGB CONC 33.6 g/dL (32.0-36.0); MEAN CORPUSCULAR VOLUME 92.4 fL (79-99); MONOCYTES % (AUTO) 3.1 % (3.0-13.0); NEUTROPHILS % (AUTO) 83.5 % (40.0-77.0); NUCLEATED RED BLOOD CELLS 0.6 % (0.0-0.19); PLATELET COUNT (AUTO) 101 K/uL (130-400); RED BLOOD CELL COUNT(AUTO) 2.77 MIL/uL (4.50-6.20); RED CELL DISTRIBUTION WIDTH 14.5 % (11.0-15.5); WHITE BLOOD COUNT (AUTO) 4.8 K/uL (4.8-10.8)
[2020-02-24 04:26] LABS: ALBUMIN 1.6 g/dL (3.5-5.0); BILIRUBIN,TOTAL 0.6 mg/dL (0.2-1.0); CREATININE 0.8 mg/dL (0.5-1.5); CRP QUANTITATIVE 156.2 mg/L (0.00-9.0); POTASSIUM 4.2 mmol/L (3.5-5.1); TOTAL PROTEIN, SERUM 5.6 g/dL (6.0-8.3)
[2020-02-24] MEDS: MIDAZOLAM 50MG-0.9% NS 50ML 50 ML BAG IV SCH (04:33)
[2020-02-24] MEDS: FENTANYL 2500MCG+NS 250ML IV.SOLN IV SCH ×2 (04:34→18:47)
[2020-02-24] MEDS: INSULIN NPH 100 UNIT/ML 3ML SQ SCH ×2 (06:00→17:34)
[2020-02-24] MEDS: GUAIFENESIN-DM 200/20 MG 10 ML PO PRN (07:45)
[2020-02-24] MEDS: DOCUSATE NA 100MG/10ML UDCUP PO SCH (07:45)
[2020-02-24] MEDS: METHYLPREDNISOLONE SOD SUCC 40MG/ML 1ML IVP SCH ×2 (07:45→20:18)
[2020-02-24] MEDS: FAMOTIDINE/PF 20 MG/2 ML VIAL IV SCH ×2 (07:45→20:18)
[2020-02-24] MEDS: ASCORBIC ACID 500 MG TAB PO SCH (07:46)
[2020-02-24] MEDS: ZINC SULFATE 220 CAPSULE PO SCH (07:46)
[2020-02-24] MEDS: ARTIFICAL TEARS SOL 15 ML OU SCH ×2 (08:14→20:18)
[2020-02-24] MEDS: ENOXAPARIN SODIUM 60 MG/0.6 ML SQ SCH (08:16)
[2020-02-24 09:15] LABS: ABG BASE EXCESS 0.9 mmol/L (-2.0-3.0); ABG HCO3 23.5 mmol/L (21.0-28.0); ABG OXYGEN SATURATION 95.7 % (95.0-99.0); ABG PCO2 32 mmHg (35-48)
--- NOTE | 2020-02-24 10:12 | NUR ---
Spoke to Dr. pena regarding pt's status. As per MD trial pt on PSV mode. pt tolerating well. MD aware of ABG results and tachycardia. RN will monitor pt.
[2020-02-24] MEDS: FLUCONAZOLE 200 MG/NS 100 ML 100 ML IV SCH (10:50)
[2020-02-24] MEDS ORDERED: LABETALOL 20 MG/4 ML DISP.SYRIN IV ONE (11:11)
[2020-02-24] MEDS ORDERED: LABETALOL 20 MG/4 ML DISP.SYRIN IV PRN (11:15)
--- NOTE | 2020-02-24 13:08 | NUR ---
pt tachycardic, tachypneic, and hypertensive on PSV mode and minimal sedation. Dr. Poe aware. As per MD continue fentanyl, precedex, and propofol. Keep off versed.
[2020-02-24] MEDS: PROPOFOL 1000 MG/100 ML IV PRN (18:48)
[2020-02-25] VITALS (44 sets, daily range): BP systolic 86–177; BP diastolic 34–111
[2020-02-25] MEDS: PROPOFOL 1000 MG/100 ML IV PRN ×4 (01:14→15:59)
[2020-02-25] MEDS: DEXMEDETOMIDINE HCL 400 MCG in SODIUM CHLORIDE 0.9% 100 ML IV SCH ×6 (01:15→20:45)
[2020-02-25] MEDS: MEROPENEM 1 GM VIAL IVP SCH ×3 (01:46→17:06)
[2020-02-25] MEDS: CIPROFLOXACIN HCL 0.3% 5ML DROPS OS SCH ×5 (03:15→18:14)
[2020-02-25] MEDS: LINEZOLID 600 MG/ISO-OSM 300 ML IV SCH ×2 (03:15→15:59)
[2020-02-25 04:00] LABS: HEMATOCRIT 26.6 % (42-54); MEAN CORPUSCULAR HEMOGLOBIN 30.8 pg (27.0-33.0); MEAN CORPUSCULAR HGB CONC 33.1 g/dL (32.0-36.0); PLATELET COUNT (AUTO) 114 K/uL (130-400); RED BLOOD CELL COUNT(AUTO) 2.86 MIL/uL (4.50-6.20); RED CELL DISTRIBUTION WIDTH 14.5 % (11.0-15.5); WHITE BLOOD COUNT (AUTO) 4.9 K/uL (4.8-10.8)
[2020-02-25 04:30] LABS: ALBUMIN 1.6 g/dL (3.5-5.0); BILIRUBIN,TOTAL 0.5 mg/dL (0.2-1.0); CREATININE 0.8 mg/dL (0.5-1.5); CRP QUANTITATIVE 77.7 mg/L (0.00-9.0); POTASSIUM 4.2 mmol/L (3.5-5.1); TOTAL PROTEIN, SERUM 5.3 g/dL (6.0-8.3)
[2020-02-25 04:59] LABS: BAND NEUTROPHILS % (MANUAL) 4 % (0-2); LYMPHOCYTES % (MANUAL) 8 % (22-44); MAN.DIFF COMMENT-IMPRESSION MANUAL DIFFERENTIAL; MONOCYTES % (MANUAL) 6 % (2-9); PLATELET MORPHOLOGY COMMENT SLIGHTLY DECREASED; SEGMENTED NEUTROPHILS % 82 % (40-70)
[2020-02-25] MEDS: FENTANYL 2500MCG+NS 250ML IV.SOLN IV SCH ×2 (06:10→17:05)
[2020-02-25] MEDS: INSULIN HUMULIN R 100 UNIT/ML 3ML SQ SCH ×3 (06:13→18:13)
[2020-02-25] MEDS: INSULIN NPH 100 UNIT/ML 3ML SQ SCH ×2 (06:14→18:13)
[2020-02-25] MEDS: METHYLPREDNISOLONE SOD SUCC 40MG/ML 1ML IVP SCH ×2 (09:06→20:45)
[2020-02-25] MEDS: ZINC SULFATE 220 CAPSULE PO SCH (09:07)
[2020-02-25] MEDS: ENOXAPARIN SODIUM 60 MG/0.6 ML SQ SCH (09:07)
[2020-02-25] MEDS: DOCUSATE NA 100MG/10ML UDCUP PO SCH (09:07)
[2020-02-25] MEDS: FAMOTIDINE/PF 20 MG/2 ML VIAL IV SCH ×2 (09:07→20:45)
[2020-02-25] MEDS: ASCORBIC ACID 500 MG TAB PO SCH (09:07)
[2020-02-25] MEDS: FLUCONAZOLE 200 MG/NS 100 ML 100 ML IV SCH (09:41)
[2020-02-25] MEDS: GUAIFENESIN-DM 200/20 MG 10 ML PO PRN (09:42)
[2020-02-25] MEDS: ARTIFICAL TEARS SOL 15 ML OU SCH ×2 (10:12→21:14)
[2020-02-25] MEDS: ACETAMINOPHEN 325 MG TAB PO PRN (18:12)
[2020-02-26] VITALS (87 sets, daily range): BP systolic 74–174; BP diastolic 34–100
[2020-02-26] MEDS: CIPROFLOXACIN HCL 0.3% 5ML DROPS OS SCH ×7 (00:07→22:51)
[2020-02-26] MEDS: INSULIN HUMULIN R 100 UNIT/ML 3ML SQ SCH ×4 (00:08→18:00)
[2020-02-26] MEDS: FENTANYL 2500MCG+NS 250ML IV.SOLN IV SCH ×3 (01:55→23:49)
[2020-02-26] MEDS: DEXMEDETOMIDINE HCL 400 MCG in SODIUM CHLORIDE 0.9% 100 ML IV SCH ×2 (01:56→05:25)
[2020-02-26] MEDS: MEROPENEM 1 GM VIAL IVP SCH ×3 (02:27→19:30)
[2020-02-26] MEDS: LINEZOLID 600 MG/ISO-OSM 300 ML IV SCH ×2 (02:28→14:05)
[2020-02-26] MEDS: PROPOFOL 1000 MG/100 ML IV PRN ×2 (06:20→23:43)
[2020-02-26 06:22] LABS: BASOPHILS % (AUTO) 0.2 % (0.0-5.0); HEMATOCRIT 28.3 % (42-54); MEAN CORPUSCULAR HEMOGLOBIN 30.8 pg (27.0-33.0); MEAN CORPUSCULAR HGB CONC 33.2 g/dL (32.0-36.0); MEAN CORPUSCULAR VOLUME 92.8 fL (79-99); MONOCYTES % (AUTO) 4.6 % (3.0-13.0); NEUTROPHILS % (AUTO) 68.7 % (40.0-77.0); NUCLEATED RED BLOOD CELLS 1.3 % (0.0-0.19); PLATELET COUNT (AUTO) 131 K/uL (130-400); RED BLOOD CELL COUNT(AUTO) 3.05 MIL/uL (4.50-6.20); RED CELL DISTRIBUTION WIDTH 14.7 % (11.0-15.5); WHITE BLOOD COUNT (AUTO) 5.4 K/uL (4.8-10.8)
[2020-02-26 06:24] LABS: ALBUMIN 1.8 g/dL (3.5-5.0); BILIRUBIN,TOTAL 0.4 mg/dL (0.2-1.0); CREATININE 0.8 mg/dL (0.5-1.5); CRP QUANTITATIVE 41.2 mg/L (0.00-9.0); POTASSIUM 3.7 mmol/L (3.5-5.1); TOTAL PROTEIN, SERUM 5.3 g/dL (6.0-8.3)
[2020-02-26] MEDS: INSULIN NPH 100 UNIT/ML 3ML SQ SCH ×2 (06:25→18:00)
[2020-02-26] MEDS: GUAIFENESIN-DM 200/20 MG 10 ML PO PRN (08:04)
[2020-02-26] MEDS: FAMOTIDINE/PF 20 MG/2 ML VIAL IV SCH ×2 (08:04→20:10)
[2020-02-26] MEDS: METHYLPREDNISOLONE SOD SUCC 40MG/ML 1ML IVP SCH ×2 (08:04→20:10)
[2020-02-26] MEDS: DOCUSATE NA 100MG/10ML UDCUP PO SCH (08:04)
[2020-02-26] MEDS: ACETAMINOPHEN 325 MG TAB PO PRN (08:05)
[2020-02-26] MEDS: ASCORBIC ACID 500 MG TAB PO SCH (08:05)
[2020-02-26] MEDS: ZINC SULFATE 220 CAPSULE PO SCH (08:05)
[2020-02-26] MEDS: ENOXAPARIN SODIUM 60 MG/0.6 ML SQ SCH (08:06)
[2020-02-26 08:26] LABS: ABG BASE EXCESS 2.5 mmol/L (-2.0-3.0); ABG HCO3 23.9 mmol/L (21.0-28.0); ABG OXYGEN SATURATION 96.5 % (95.0-99.0); ABG PCO2 29 mmHg (35-48)
[2020-02-26] MEDS: ZIPRASIDONE HCL 20 MG CAPSULE NG SCH (09:00)
[2020-02-26] MEDS: FLUCONAZOLE 200 MG/NS 100 ML 100 ML IV SCH (10:02)
[2020-02-26] MEDS: ARTIFICAL TEARS SOL 15 ML OU SCH ×2 (11:22→20:10)
[2020-02-26] MEDS ORDERED: NOREPINEPHRINE 4MG/NS 250ML 250 ML IV ONE (16:47)
[2020-02-26] MEDS: MIDAZOLAM 50MG-0.9% NS 50ML 50 ML BAG IV SCH ×2 (21:06→23:44)
[2020-02-27] VITALS (109 sets, daily range): BP systolic 85–188; BP diastolic 32–113
[2020-02-27 00:15] LABS: CREATININE 0.8 mg/dL (0.5-1.5); POTASSIUM 3.6 mmol/L (3.5-5.1)
[2020-02-27 00:19] LABS: ALBUMIN 2.2 g/dL (3.5-5.0); BILIRUBIN,TOTAL 0.7 mg/dL (0.2-1.0); MAGNESIUM 2.1 mg/dL (1.80-2.40); TOTAL PROTEIN, SERUM 6.2 g/dL (6.0-8.3)
--- NOTE | 2020-02-27 01:48 | NUR ---
pt remain hypertensive with tachycardia and tachypneic pt is maxed out of propofol,versed and fentanyl primary team ADMISSION NURSE made aware cmp and mag level drawn no significant change noted. pt awake and triggering the ventilator.
[2020-02-27] MEDS: CIPROFLOXACIN HCL 0.3% 5ML DROPS OS SCH ×6 (02:40→23:05)
[2020-02-27] MEDS: LINEZOLID 600 MG/ISO-OSM 300 ML IV SCH ×2 (03:03→14:33)
[2020-02-27] MEDS: MEROPENEM 1 GM VIAL IVP SCH ×3 (03:06→18:11)
[2020-02-27] MEDS: PROPOFOL 1000 MG/100 ML IV PRN ×6 (03:24→23:34)
[2020-02-27 04:49] LABS: HEMATOCRIT 25.7 % (42-54); MEAN CORPUSCULAR HEMOGLOBIN 30.6 pg (27.0-33.0); MEAN CORPUSCULAR HGB CONC 33.1 g/dL (32.0-36.0); MEAN CORPUSCULAR VOLUME 92.4 fL (79-99); NUCLEATED RED BLOOD CELLS 0.5 % (0.0-0.19); PLATELET COUNT (AUTO) 121 K/uL (130-400); RED BLOOD CELL COUNT(AUTO) 2.78 MIL/uL (4.50-6.20); RED CELL DISTRIBUTION WIDTH 15.3 % (11.0-15.5); WHITE BLOOD COUNT (AUTO) 5.6 K/uL (4.8-10.8)
[2020-02-27 05:17] LABS: ALBUMIN 1.7 g/dL (3.5-5.0); BILIRUBIN,TOTAL 0.4 mg/dL (0.2-1.0); CREATININE 0.8 mg/dL (0.5-1.5); CRP QUANTITATIVE 26.1 mg/L (0.00-9.0); POTASSIUM 3.8 mmol/L (3.5-5.1); TOTAL PROTEIN, SERUM 4.9 g/dL (6.0-8.3)
[2020-02-27] MEDS: MIDAZOLAM 50MG-0.9% NS 50ML 50 ML BAG IV SCH ×5 (05:31→23:55)
[2020-02-27] MEDS: FENTANYL 2500MCG+NS 250ML IV.SOLN IV SCH ×3 (05:32→21:12)
[2020-02-27 05:57] LABS: BAND NEUTROPHILS % (MANUAL) 3 % (0-2); LYMPHOCYTES % (MANUAL) 13 % (22-44); MAN.DIFF COMMENT-IMPRESSION MANUAL DIFFERENTIAL; MONOCYTES % (MANUAL) 1 % (2-9); SEGMENTED NEUTROPHILS % 83 % (40-70)
[2020-02-27 05:58] LABS: PLATELET MORPHOLOGY COMMENT SLIGHTLY DECREASED
[2020-02-27] MEDS: INSULIN HUMULIN R 100 UNIT/ML 3ML SQ SCH ×5 (06:00→23:40)
[2020-02-27] MEDS: INSULIN NPH 100 UNIT/ML 3ML SQ SCH ×2 (06:55→18:13)
[2020-02-27] MEDS: FAMOTIDINE/PF 20 MG/2 ML VIAL IV SCH ×2 (08:08→20:27)
[2020-02-27] MEDS: ASCORBIC ACID 500 MG TAB PO SCH (08:08)
[2020-02-27] MEDS: ENOXAPARIN SODIUM 60 MG/0.6 ML SQ SCH (08:08)
[2020-02-27] MEDS: DOCUSATE NA 100MG/10ML UDCUP PO SCH (08:08)
[2020-02-27] MEDS: METHYLPREDNISOLONE SOD SUCC 40MG/ML 1ML IVP SCH ×2 (08:08→20:27)
[2020-02-27] MEDS: ZINC SULFATE 220 CAPSULE PO SCH (08:09)
[2020-02-27 08:13] LABS: ABG BASE EXCESS 0.2 mmol/L (-2.0-3.0); ABG HCO3 24.2 mmol/L (21.0-28.0); ABG OXYGEN SATURATION 93.1 % (95.0-99.0); ABG PCO2 37 mmHg (35-48)
[2020-02-27] MEDS: ZIPRASIDONE HCL 20 MG CAPSULE NG SCH (09:00)
[2020-02-27] MEDS: FLUCONAZOLE 200 MG/NS 100 ML 100 ML IV SCH (10:12)
[2020-02-27] MEDS: ARTIFICAL TEARS SOL 15 ML OU SCH ×2 (14:43→21:11)
[2020-02-28] VITALS (58 sets, daily range): BP systolic 84–178; BP diastolic 32–116
[2020-02-28] MEDS: CIPROFLOXACIN HCL 0.3% 5ML DROPS OS SCH ×2 (02:30→06:14)
[2020-02-28] MEDS: MEROPENEM 1 GM VIAL IVP SCH ×3 (03:03→18:30)
[2020-02-28] MEDS: LINEZOLID 600 MG/ISO-OSM 300 ML IV SCH ×2 (03:03→15:47)
[2020-02-28] MEDS: PROPOFOL 1000 MG/100 ML IV PRN ×5 (03:50→23:58)
[2020-02-28] MEDS: MIDAZOLAM 50MG-0.9% NS 50ML 50 ML BAG IV SCH ×2 (03:50→09:21)
[2020-02-28] MEDS: FENTANYL 2500MCG+NS 250ML IV.SOLN IV SCH ×2 (05:42→16:08)
[2020-02-28] MEDS: INSULIN HUMULIN R 100 UNIT/ML 3ML SQ SCH ×4 (06:00→23:34)
[2020-02-28] MEDS: INSULIN NPH 100 UNIT/ML 3ML SQ SCH ×2 (06:12→18:31)
[2020-02-28 07:22] LABS: BASOPHILS % (AUTO) 0.2 % (0.0-5.0); EOSINOPHILS % (AUTO) 0.2 % (0.0-8.0); HEMATOCRIT 26.6 % (42-54); LYMPHOCYTES % (AUTO) 12.5 % (21.0-51.0); MEAN CORPUSCULAR HEMOGLOBIN 30.9 pg (27.0-33.0); MEAN CORPUSCULAR HGB CONC 33.1 g/dL (32.0-36.0); MEAN CORPUSCULAR VOLUME 93.3 fL (79-99); MONOCYTES % (AUTO) 3.4 % (3.0-13.0); NUCLEATED RED BLOOD CELLS 1.7 % (0.0-0.19); PLATELET COUNT (AUTO) 143 K/uL (130-400); RED BLOOD CELL COUNT(AUTO) 2.85 MIL/uL (4.50-6.20); RED CELL DISTRIBUTION WIDTH 15.9 % (11.0-15.5); WHITE BLOOD COUNT (AUTO) 5.9 K/uL (4.8-10.8)
[2020-02-28 07:34] LABS: ABG BASE EXCESS 1.9 mmol/L (-2.0-3.0); ABG HCO3 23.9 mmol/L (21.0-28.0); ABG OXYGEN SATURATION 97.4 % (95.0-99.0); ABG PCO2 30 mmHg (35-48)
[2020-02-28 07:36] LABS: CREATININE 0.6 mg/dL (0.5-1.5); POTASSIUM 3.7 mmol/L (3.5-5.1)
[2020-02-28] MEDS: ZIPRASIDONE HCL 20 MG CAPSULE NG SCH (09:00)
[2020-02-28] MEDS: ASCORBIC ACID 500 MG TAB PO SCH (09:20)
[2020-02-28] MEDS: METHYLPREDNISOLONE SOD SUCC 40MG/ML 1ML IVP SCH ×2 (09:20→20:17)
[2020-02-28] MEDS: DOCUSATE NA 100MG/10ML UDCUP PO SCH (09:20)
[2020-02-28] MEDS: ARTIFICAL TEARS SOL 15 ML OU SCH ×2 (09:20→20:17)
[2020-02-28] MEDS: ENOXAPARIN SODIUM 60 MG/0.6 ML SQ SCH (09:20)
[2020-02-28] MEDS: FAMOTIDINE/PF 20 MG/2 ML VIAL IV SCH ×2 (09:20→20:17)
[2020-02-28] MEDS: ZINC SULFATE 220 CAPSULE PO SCH (09:20)
[2020-02-28] MEDS: FLUCONAZOLE 200 MG/NS 100 ML 100 ML IV SCH (10:50)
[2020-02-28] MEDS: ACETAMINOPHEN 325 MG TAB PO PRN ×2 (12:14→16:08)
[2020-02-28] MEDS ORDERED: MAGNESIUM 2GM PREMIX 50ML 50 ML IV PRN (13:15)
[2020-02-28 14:34] LABS: CREATININE 0.7 mg/dL (0.5-1.5)
[2020-02-28] MEDS: DEXMEDETOMIDINE HCL 400 MCG in SODIUM CHLORIDE 0.9% 96 ML IV PRN ×2 (17:48→20:47)
[2020-02-29] VITALS (43 sets, daily range): BP systolic 82–162; BP diastolic 45–113
[2020-02-29] MEDS: LINEZOLID 600 MG/ISO-OSM 300 ML IV SCH ×2 (04:02→15:09)
[2020-02-29] MEDS: PROPOFOL 1000 MG/100 ML IV PRN ×4 (04:02→23:02)
[2020-02-29] MEDS: MEROPENEM 1 GM VIAL IVP SCH ×3 (04:02→17:48)
[2020-02-29] MEDS: INSULIN NPH 100 UNIT/ML 3ML SQ SCH ×2 (05:39→17:29)
[2020-02-29 05:40] LABS: BASOPHILS % (AUTO) 0.2 % (0.0-5.0); EOSINOPHILS % (AUTO) 0.2 % (0.0-8.0); HEMATOCRIT 26.5 % (42-54); LYMPHOCYTES % (AUTO) 18.1 % (21.0-51.0); MEAN CORPUSCULAR HEMOGLOBIN 31.1 pg (27.0-33.0); MEAN CORPUSCULAR HGB CONC 32.8 g/dL (32.0-36.0); MEAN CORPUSCULAR VOLUME 94.6 fL (79-99); MONOCYTES % (AUTO) 2.4 % (3.0-13.0); NEUTROPHILS % (AUTO) 74.2 % (40.0-77.0); PLATELET COUNT (AUTO) 154 K/uL (130-400); RED CELL DISTRIBUTION WIDTH 15.9 % (11.0-15.5); WHITE BLOOD COUNT (AUTO) 5.5 K/uL (4.8-10.8)
[2020-02-29] MEDS: INSULIN HUMULIN R 100 UNIT/ML 3ML SQ SCH ×3 (05:40→17:26)
[2020-02-29 05:49] LABS: ALBUMIN 1.8 g/dL (3.5-5.0); BILIRUBIN,TOTAL 0.4 mg/dL (0.2-1.0); CREATININE 0.7 mg/dL (0.5-1.5); CRP QUANTITATIVE 18.5 mg/L (0.00-9.0); MAGNESIUM 1.6 mg/dL (1.80-2.40); POTASSIUM 3.7 mmol/L (3.5-5.1)
--- NOTE | 2020-02-29 06:02 | NUR ---
blood sugar checked 214 elevated glucose in blood due to lab drawn on side where abt mixed with dextrose running
[2020-02-29] MEDS: POTASSIUM CHLORIDE 20MEQ/100ML 100 ML IV PRN (06:22)
[2020-02-29] MEDS: ASCORBIC ACID 500 MG TAB PO SCH (08:29)
[2020-02-29] MEDS: FAMOTIDINE/PF 20 MG/2 ML VIAL IV SCH ×2 (08:30→21:30)
[2020-02-29] MEDS: ZIPRASIDONE HCL 20 MG CAPSULE NG SCH (08:30)
[2020-02-29] MEDS: DOCUSATE NA 100MG/10ML UDCUP PO SCH (08:30)
[2020-02-29] MEDS: METHYLPREDNISOLONE SOD SUCC 40MG/ML 1ML IVP SCH ×2 (08:30→21:30)
[2020-02-29] MEDS: ENOXAPARIN SODIUM 60 MG/0.6 ML SQ SCH (08:32)
[2020-02-29] MEDS: ZINC SULFATE 220 CAPSULE PO SCH (08:32)
[2020-02-29] MEDS: ARTIFICAL TEARS SOL 15 ML OU SCH ×2 (08:33→21:30)
[2020-02-29] MEDS: ACETAMINOPHEN 325 MG TAB PO PRN (08:34)
[2020-02-29] MEDS: FLUCONAZOLE 200 MG/NS 100 ML 100 ML IV SCH (09:46)
[2020-02-29 13:26] LABS: CREATININE 0.8 mg/dL (0.5-1.5); POTASSIUM 4.3 mmol/L (3.5-5.1)
[2020-02-29] MEDS: DEXMEDETOMIDINE HCL 400 MCG in SODIUM CHLORIDE 0.9% 96 ML IV PRN (22:55)
[2020-03-01] VITALS (51 sets, daily range): BP systolic 88–174; BP diastolic 39–119
[2020-03-01] MEDS: ACETAMINOPHEN 325 MG TAB PO PRN ×2 (00:05→21:43)
[2020-03-01] MEDS: DEXMEDETOMIDINE HCL 400 MCG in SODIUM CHLORIDE 0.9% 96 ML IV PRN ×2 (02:11→05:13)
[2020-03-01] MEDS: LINEZOLID 600 MG/ISO-OSM 300 ML IV SCH ×2 (02:58→17:02)
[2020-03-01] MEDS: MEROPENEM 1 GM VIAL IVP SCH ×3 (02:58→21:42)
[2020-03-01] MEDS: INSULIN HUMULIN R 100 UNIT/ML 3ML SQ SCH ×4 (06:00→18:00)
[2020-03-01 06:24] LABS: ALBUMIN 2.2 g/dL (3.5-5.0); BILIRUBIN,TOTAL 0.6 mg/dL (0.2-1.0); CREATININE 0.7 mg/dL (0.5-1.5); CRP QUANTITATIVE 51.4 mg/L (0.00-9.0); POTASSIUM 3.9 mmol/L (3.5-5.1); TOTAL PROTEIN, SERUM 5.7 g/dL (6.0-8.3)
[2020-03-01] MEDS: PROPOFOL 1000 MG/100 ML IV PRN (06:44)
[2020-03-01] MEDS: INSULIN NPH 100 UNIT/ML 3ML SQ SCH ×2 (06:46→17:05)
[2020-03-01 07:19] LABS: ABG BASE EXCESS 4.9 mmol/L (-2.0-3.0); ABG HCO3 27.2 mmol/L (21.0-28.0); ABG OXYGEN SATURATION 96.7 % (95.0-99.0); ABG PCO2 33 mmHg (35-48)
--- NOTE | 2020-03-01 08:05 | NUR ---
Patient remained vented and on sedation,endorsed care to incoming NOD using SBAR,all questions answered.
[2020-03-01] MEDS: METHYLPREDNISOLONE SOD SUCC 40MG/ML 1ML IVP SCH (09:56)
[2020-03-01] MEDS: FAMOTIDINE/PF 20 MG/2 ML VIAL IV SCH ×2 (09:56→21:42)
[2020-03-01] MEDS: ASCORBIC ACID 500 MG TAB PO SCH (09:56)
[2020-03-01] MEDS: ZINC SULFATE 220 CAPSULE PO SCH (09:57)
[2020-03-01] MEDS: ENOXAPARIN SODIUM 60 MG/0.6 ML SQ SCH (09:57)
[2020-03-01] MEDS: ARTIFICAL TEARS SOL 15 ML OU SCH ×2 (09:58→21:00)
[2020-03-01] MEDS: DOCUSATE NA 100MG/10ML UDCUP PO SCH (09:58)
[2020-03-01] MEDS: ZIPRASIDONE HCL 20 MG CAPSULE NG SCH (10:00)
[2020-03-01] MEDS: FLUCONAZOLE 200 MG/NS 100 ML 100 ML IV SCH (10:50)
--- NOTE | 2020-03-01 11:15 | NUR ---
PROPOFOL WAS DC'D AND FENTANYL WAS REDUCED TO 20MCG. NOTIFIED JESICA MCKEON RESP. THERAPIST OF WEANING PARAMETERS TO BE OBTAINED AFTER 1 HOUR.
--- NOTE | 2020-03-01 13:15 | NUR ---
PT WAS ASSESSED PER DR. OTT AND ORDERS NOTED.
[2020-03-01] MEDS ORDERED: DEXAMETHASONE SOD PHOSPHATE 4 MG/ML 1ML VIAL IVP SCH (18:00)
[2020-03-02] VITALS (23 sets, daily range): BP systolic 112–197; BP diastolic 66–112
[2020-03-02] MEDS: MEROPENEM 1 GM VIAL IVP SCH ×3 (02:49→17:53)
[2020-03-02] MEDS: LINEZOLID 600 MG/ISO-OSM 300 ML IV SCH (02:49)
[2020-03-02 05:13] LABS: HEMATOCRIT 32.3 % (42-54); MEAN CORPUSCULAR HEMOGLOBIN 30.8 pg (27.0-33.0); MEAN CORPUSCULAR HGB CONC 32.8 g/dL (32.0-36.0); MEAN CORPUSCULAR VOLUME 93.9 fL (79-99); RED BLOOD CELL COUNT(AUTO) 3.44 MIL/uL (4.50-6.20); RED CELL DISTRIBUTION WIDTH 16.8 % (11.0-15.5); WHITE BLOOD COUNT (AUTO) 7.4 K/uL (4.8-10.8)
[2020-03-02 05:56] LABS: ALBUMIN 2.1 g/dL (3.5-5.0); BILIRUBIN,TOTAL 0.9 mg/dL (0.2-1.0); CREATININE 0.6 mg/dL (0.5-1.5); PHOSPHORUS 2.9 mg/dL (2.5-4.9); POTASSIUM 3.4 mmol/L (3.5-5.1); TOTAL PROTEIN, SERUM 6.1 g/dL (6.0-8.3)
[2020-03-02] MEDS: INSULIN HUMULIN R 100 UNIT/ML 3ML SQ SCH ×4 (06:00→18:00)
[2020-03-02 06:36] LABS: CRP QUANTITATIVE 170.3 mg/L (0.00-9.0)
[2020-03-02] MEDS: POTASSIUM CHLORIDE 20MEQ/100ML 100 ML IV PRN (06:47)
[2020-03-02] MEDS: LIDOCAINE HCL-MPF 1% 2ML VIAL IV PRN (06:47)
[2020-03-02] MEDS: INSULIN NPH 100 UNIT/ML 3ML SQ SCH ×2 (06:59→18:00)
[2020-03-02] MEDS: ZIPRASIDONE HCL 20 MG CAPSULE NG SCH (08:03)
[2020-03-02] MEDS: FAMOTIDINE/PF 20 MG/2 ML VIAL IV SCH ×2 (08:04→17:53)
[2020-03-02] MEDS: ZINC SULFATE 220 CAPSULE PO SCH (08:04)
[2020-03-02] MEDS: DOCUSATE NA 100MG/10ML UDCUP PO SCH (08:04)
[2020-03-02] MEDS: ASCORBIC ACID 500 MG TAB PO SCH (08:04)
[2020-03-02] MEDS: FLUCONAZOLE 200 MG/NS 100 ML 100 ML IV SCH (08:05)
[2020-03-02] MEDS: ENOXAPARIN SODIUM 100 MG/1 ML SQ SCH (08:05)
[2020-03-02] MEDS: ARTIFICAL TEARS SOL 15 ML OU SCH ×2 (08:05→20:30)
[2020-03-02 13:05] LABS: ABG BASE EXCESS 3.5 mmol/L (-2.0-3.0); ABG HCO3 26.9 mmol/L (21.0-28.0); ABG OXYGEN SATURATION 98.6 % (95.0-99.0); ABG PCO2 37 mmHg (35-48)
[2020-03-02] MEDS: FENTANYL 2500MCG+NS 250ML IV.SOLN IV SCH (14:50)
--- NOTE | 2020-03-02 15:45 | NUR ---
Pt extubated at this time as per protocol. RT and RN at bedside. pt placed on nrb @ 15lpm. 02 sat >95% Will continue to monitor.
[2020-03-03] VITALS (17 sets, daily range): BP systolic 96–151; BP diastolic 54–102
[2020-03-03] MEDS: MEROPENEM 1 GM VIAL IVP SCH (03:16)
[2020-03-03 05:21] LABS: ALBUMIN 2.4 g/dL (3.5-5.0); CREATININE 0.8 mg/dL (0.5-1.5); CRP QUANTITATIVE 175.9 mg/L (0.00-9.0); TOTAL PROTEIN, SERUM 6.6 g/dL (6.0-8.3)
[2020-03-03] MEDS: INSULIN HUMULIN R 100 UNIT/ML 3ML SQ SCH ×4 (06:00→17:39)
[2020-03-03] MEDS: INSULIN NPH 100 UNIT/ML 3ML SQ SCH ×2 (06:42→17:39)
[2020-03-03] MEDS: DOCUSATE NA 100MG/10ML UDCUP PO SCH (07:46)
[2020-03-03] MEDS: ZIPRASIDONE HCL 20 MG CAPSULE NG SCH (07:46)
[2020-03-03] MEDS: ASCORBIC ACID 500 MG TAB PO SCH (07:47)
[2020-03-03] MEDS: ZINC SULFATE 220 CAPSULE PO SCH (07:47)
[2020-03-03] MEDS: ENOXAPARIN SODIUM 100 MG/1 ML SQ SCH (07:48)
[2020-03-03] MEDS: FLUCONAZOLE 200 MG/NS 100 ML 100 ML IV SCH (07:48)
[2020-03-03] MEDS: FAMOTIDINE/PF 20 MG/2 ML VIAL IV SCH ×2 (07:48→17:40)
[2020-03-03] MEDS: ARTIFICAL TEARS SOL 15 ML OU SCH ×2 (07:49→21:17)
[2020-03-03] MEDS: METHYLPREDNISOLONE SOD SUCC 125MG/2ML VIAL IVP SCH ×3 (15:30→21:16)
--- NOTE | 2020-03-03 15:40 | NUR ---
DYSPHAGIA EVAL COMPLETED. +S/S OF ASPIRATION WITH THIN LIQUIDS. RECOMMEND FULL LIQUIDS, NECTAR-THICK LIQUID DIET, PILLS CRUSHED WITH APPLESAUCE. RECOMMENDATIONS: 1. SKILLED SPEECH THERAPY 2-3XWEEK TOLERATED DUR TO RESPIRATORY STATUS TO INCREASE ORAL MOTOR STRENGTH AND PHARYNGEAL SWALLOW: LTG#1: Pt WILL TOLERATE LEAST RESTRICTIVE DIET TO MEET NUTRITION/HYDRATION WITH NO S/S OF ASPIRATION. LTG#2: SKILLED EDUCATION Pt/FAMILY/STAFF STG#1: Pt WILL PARTICIPATE IN LARYNGEAL ELEVATION/EXCURSION EXERCISES WITH 80% ACCURACY. STG#2: Pt WILL PARTICIPATE IN TONGUE BASE RETRACTION EXERCISES WITH 80% ACCURACY. STG#3: Pt WILL PARTICIPATE IN ORAL MOTOR EXERCISES WITH 80% ACCURACY. STG#4: Pt WILL TOLERATE FULL LIQUID, NECTAR-THICK LIQUID DIET WITH NO S/S OF ASPIRATION. STG#5: PT WILL TOLERATE THERAPEUTIC TRIALS OF MECHANICAL SOFT/CHOPPED, THIN LIQUIDS WITH NO OVERT S/S OF ASPIRATION. STG#6: SKILLED EDUCATION Pt/FAMILY/STAFF. Addendum: 03/03/20 at 1544 by JOSELINE SOTELO, SPT ST Amended: Links added.
[2020-03-04] VITALS (16 sets, daily range): BP systolic 118–161; BP diastolic 50–93
[2020-03-04] MEDS: METHYLPREDNISOLONE SOD SUCC 125MG/2ML VIAL IVP SCH ×4 (03:30→21:46)
[2020-03-04 04:37] LABS: HEMATOCRIT 30.8 % (42-54); LYMPHOCYTES % (AUTO) 9.7 % (21.0-51.0); MEAN CORPUSCULAR HEMOGLOBIN 30.9 pg (27.0-33.0); MEAN CORPUSCULAR HGB CONC 33.8 g/dL (32.0-36.0); MEAN CORPUSCULAR VOLUME 91.4 fL (79-99); MONOCYTES % (AUTO) 2.1 % (3.0-13.0); NEUTROPHILS % (AUTO) 87.7 % (40.0-77.0); PLATELET COUNT (AUTO) 165 K/uL (130-400); RED BLOOD CELL COUNT(AUTO) 3.37 MIL/uL (4.50-6.20); RED CELL DISTRIBUTION WIDTH 15.8 % (11.0-15.5); WHITE BLOOD COUNT (AUTO) 3.8 K/uL (4.8-10.8)
[2020-03-04 05:03] LABS: ALBUMIN 2.3 g/dL (3.5-5.0); BILIRUBIN,TOTAL 0.7 mg/dL (0.2-1.0); CREATININE 0.5 mg/dL (0.5-1.5); POTASSIUM 3.5 mmol/L (3.5-5.1); TOTAL PROTEIN, SERUM 6.2 g/dL (6.0-8.3)
[2020-03-04] MEDS: INSULIN HUMULIN R 100 UNIT/ML 3ML SQ SCH ×5 (05:36→21:33)
[2020-03-04] MEDS: INSULIN NPH 100 UNIT/ML 3ML SQ SCH ×2 (06:45→17:54)
[2020-03-04] MEDS: FENTANYL 2500MCG+NS 250ML IV.SOLN IV SCH (06:46)
[2020-03-04] MEDS: DEXMEDETOMIDINE HCL 400 MCG in SODIUM CHLORIDE 0.9% 96 ML IV PRN (06:46)
[2020-03-04] MEDS: ZIPRASIDONE HCL 20 MG CAPSULE NG SCH (08:30)
[2020-03-04] MEDS: FAMOTIDINE/PF 20 MG/2 ML VIAL IV SCH ×2 (08:34→21:46)
[2020-03-04] MEDS: ZINC SULFATE 220 CAPSULE PO SCH (08:34)
[2020-03-04] MEDS: DOCUSATE NA 100MG/10ML UDCUP PO SCH (08:34)
[2020-03-04] MEDS: ASCORBIC ACID 500 MG TAB PO SCH (08:34)
[2020-03-04] MEDS: ENOXAPARIN SODIUM 100 MG/1 ML SQ SCH (08:35)
[2020-03-04] MEDS: ARTIFICAL TEARS SOL 15 ML OU SCH ×2 (09:00→21:02)
--- NOTE | 2020-03-04 10:17 | NUR ---
DC PLAN SPOKE TO [employer] REP DISCUSSED CASE: PATIENT ON NRB AT 15 RESPIRATIONS HIGH 20'S - 30'S. DDIMER TRENDING DOWN FROM 2355 TO 1703. PATIENT IN ICU NOT STABLE TO TRANSFER TO [facility]. YET. PLAN WILL BE TO [facility] ON STABLE. INSURANCE LINDSEY CLAROS [phone] TO HELP WITH DISCHARGE WHEN PATIENT ABLE TO TRANSFER. Addendum: 03/04/20 at 1019 by FREDDIE OMALLEY RN CM Amended: Links added.
[2020-03-04] MEDS: FLUCONAZOLE 200 MG/NS 100 ML 100 ML IV SCH (11:20)
--- NOTE | 2020-03-04 11:49 | NUR ---
Report endorsed to MARY Cordova
--- NOTE | 2020-03-04 14:27 | NUR ---
VERBAL REPORT RECEIVED FROM MARY HAMMER AT PT'S BEDSIDE. TRANSFERRED VIA BED WITH O2 IN USE FROM ICU TO TELE. ALERT AND ORIENTED TO SELF. RESPIRATIONS EVEN AND UNLABORED. 2L NC. DENIED ANY PAIN/DISCOMFORT. MENDEZ INTACT AND PATENT. SAFETY MEASURES IN PLACE.
--- NOTE | 2020-03-04 15:37 | NUR ---
FOLLOW UP COMPLETED. Pt CURRENTLY ON FULL LIQUID DIET. Pt CONTINUES TO BE ON NON-REBREATHER WITH DESATURATION WHEN HE MOVES, REPOSITIONS. RECOMMEND CONTINUED P.O. DIET IF RESPIRATORY STATUS DOES NOT DECLINES. HEALTH AND PHYSICAL EDUCATION TEACHER WILL CONTINUE TO FOLLOW Pt. Addendum: 03/04/20 at 1539 by JOSELINE SOTELO, SPT ST Amended: Links added.
[2020-03-04] MEDS ORDERED: MIDAZOLAM 100MG-0.9% NS 100ML 100 ML IV SCH (17:45)
[2020-03-05] MEDS: METHYLPREDNISOLONE SOD SUCC 125MG/2ML VIAL IVP SCH ×3 (03:06→20:39)
[2020-03-05 03:39] VITALS: BP 135/86
[2020-03-05 05:01] LABS: BASOPHILS % (AUTO) 0.2 % (0.0-5.0); HEMATOCRIT 31.5 % (42-54); LYMPHOCYTES % (AUTO) 9.5 % (21.0-51.0); MEAN CORPUSCULAR HEMOGLOBIN 30.5 pg (27.0-33.0); MEAN CORPUSCULAR HGB CONC 33.7 g/dL (32.0-36.0); MEAN CORPUSCULAR VOLUME 90.8 fL (79-99); MONOCYTES % (AUTO) 2.6 % (3.0-13.0); PLATELET COUNT (AUTO) 213 K/uL (130-400); RED BLOOD CELL COUNT(AUTO) 3.47 MIL/uL (4.50-6.20); RED CELL DISTRIBUTION WIDTH 15.7 % (11.0-15.5); WHITE BLOOD COUNT (AUTO) 6.1 K/uL (4.8-10.8)
[2020-03-05 05:40] LABS: ALBUMIN 2.5 g/dL (3.5-5.0); BILIRUBIN,TOTAL 0.7 mg/dL (0.2-1.0); CREATININE 0.4 mg/dL (0.5-1.5); CRP QUANTITATIVE 53.7 mg/L (0.00-9.0); POTASSIUM 3.4 mmol/L (3.5-5.1); TOTAL PROTEIN, SERUM 6.4 g/dL (6.0-8.3)
[2020-03-05] MEDS: INSULIN HUMULIN R 100 UNIT/ML 3ML SQ SCH ×3 (06:00→18:00)
[2020-03-05] MEDS: INSULIN NPH 100 UNIT/ML 3ML SQ SCH ×2 (06:33→18:00)
[2020-03-05 08:00] VITALS: BP 176/77
[2020-03-05] MEDS: DOCUSATE NA 100MG/10ML UDCUP PO SCH (09:00)
[2020-03-05] MEDS ORDERED: POTASSIUM CHLORIDE 20 MEQ ERTAB PO SCH (09:00)
[2020-03-05] MEDS: ASCORBIC ACID 500 MG TAB PO SCH (09:44)
[2020-03-05] MEDS: ZIPRASIDONE HCL 20 MG CAPSULE NG SCH (09:44)
[2020-03-05] MEDS: FAMOTIDINE/PF 20 MG/2 ML VIAL IV SCH ×2 (09:44→20:39)
[2020-03-05] MEDS: ZINC SULFATE 220 CAPSULE PO SCH (09:44)
[2020-03-05] MEDS: FLUCONAZOLE 200 MG/NS 100 ML 100 ML IV SCH (09:44)
[2020-03-05] MEDS: ENOXAPARIN SODIUM 100 MG/1 ML SQ SCH (09:45)
[2020-03-05] MEDS: ARTIFICAL TEARS SOL 15 ML OU SCH ×2 (09:45→20:39)
--- NOTE | 2020-03-05 11:18 | NUR ---
FOLLOW UP COMPLETED. Pt TOOK MEDICATIONS WHOLE WITH THIN LIQUIDS WITH NO S/S OF ASPIRATION. RECOMMEND DIET UPGRADE TO MECHANICAL SOFT/CHOPPED, THIN LIQUIDS AND PILLS WHOLE WITH LIQUIDS AT THIS TIME. LIQUID INTAKE OF SMALL BITES AND SIPS. STEAM CONDITIONER OPERATOR WILL FOLLOW Pt AND DETERMINE DIET TOLERANCE. STEAM CONDITIONER OPERATOR COORDINATED WITH PRIMARY NURSE. Addendum: 03/05/20 at 1124 by JOSELINE SOTELO [facility] Amended: Links added.
[2020-03-05 11:30] VITALS: BP 139/93
--- NOTE | 2020-03-05 13:00 | NUR ---
DR. OTT ROUNDED, UPDATES PROVIDED, MADE AWARE OF SPEECH THERAPIST DIET UPGRADE RECOMMENDATION. OKAYED ADVANDING DIET TO MECHANICAL SOFT.
--- NOTE | 2020-03-05 14:44 | NUR ---
DR. PRINCE ROUNDED, VERBAL ORDERS RECEIVED FOR CBC, BMP.
[2020-03-05 15:29] LABS: HEMATOCRIT 29.9 % (42-54); MEAN CORPUSCULAR HEMOGLOBIN 30.8 pg (27.0-33.0); MEAN CORPUSCULAR HGB CONC 34.1 g/dL (32.0-36.0); MEAN CORPUSCULAR VOLUME 90.3 fL (79-99); PLATELET COUNT (AUTO) 208 K/uL (130-400); RED BLOOD CELL COUNT(AUTO) 3.31 MIL/uL (4.50-6.20); RED CELL DISTRIBUTION WIDTH 15.6 % (11.0-15.5); WHITE BLOOD COUNT (AUTO) 5.8 K/uL (4.8-10.8)
[2020-03-05 15:30] VITALS: BP 144/91
[2020-03-05 15:39] LABS: CREATININE 0.6 mg/dL (0.5-1.5); POTASSIUM 3.5 mmol/L (3.5-5.1)
[2020-03-05 16:31] LABS: LYMPHOCYTES % (MANUAL) 6 % (22-44); MONOCYTES % (MANUAL) 5 % (2-9); SEGMENTED NEUTROPHILS % 89 % (40-70)
[2020-03-05 16:32] LABS: MAN.DIFF COMMENT-IMPRESSION MANUAL DIFFERENTIAL; PLATELET MORPHOLOGY COMMENT ADEQUATE
[2020-03-05 19:00] VITALS: BP 130/89
[2020-03-05 23:00] VITALS: BP 151/85
[2020-03-06] VITALS (7 sets, daily range): BP systolic 115–158; BP diastolic 70–99
[2020-03-06 04:43] LABS: HEMATOCRIT 34.1 % (42-54); LYMPHOCYTES % (AUTO) 12.6 % (21.0-51.0); MEAN CORPUSCULAR HEMOGLOBIN 30.6 pg (27.0-33.0); MEAN CORPUSCULAR HGB CONC 33.4 g/dL (32.0-36.0); MEAN CORPUSCULAR VOLUME 91.4 fL (79-99); MONOCYTES % (AUTO) 4.5 % (3.0-13.0); NEUTROPHILS % (AUTO) 81.4 % (40.0-77.0); NUCLEATED RED BLOOD CELLS 0.3 % (0.0-0.19); PLATELET COUNT (AUTO) 237 K/uL (130-400); RED BLOOD CELL COUNT(AUTO) 3.73 MIL/uL (4.50-6.20); RED CELL DISTRIBUTION WIDTH 15.7 % (11.0-15.5); WHITE BLOOD COUNT (AUTO) 6.8 K/uL (4.8-10.8)
[2020-03-06 05:00] LABS: ALBUMIN 2.6 g/dL (3.5-5.0); BILIRUBIN,TOTAL 0.7 mg/dL (0.2-1.0); CREATININE 0.6 mg/dL (0.5-1.5); POTASSIUM 3.8 mmol/L (3.5-5.1); TOTAL PROTEIN, SERUM 6.5 g/dL (6.0-8.3)
[2020-03-06] MEDS: INSULIN NPH 100 UNIT/ML 3ML SQ SCH ×2 (06:00→18:00)
[2020-03-06] MEDS: INSULIN HUMULIN R 100 UNIT/ML 3ML SQ SCH ×4 (06:00→17:15)
[2020-03-06] MEDS: METHYLPREDNISOLONE SOD SUCC 125MG/2ML VIAL IVP SCH (09:15)
[2020-03-06] MEDS: ZIPRASIDONE HCL 20 MG CAPSULE NG SCH (09:17)
[2020-03-06] MEDS: ZINC SULFATE 220 CAPSULE PO SCH (09:17)
[2020-03-06] MEDS: ASCORBIC ACID 500 MG TAB PO SCH (09:18)
[2020-03-06] MEDS: FAMOTIDINE/PF 20 MG/2 ML VIAL IV SCH ×2 (09:18→21:00)
[2020-03-06] MEDS: ARTIFICAL TEARS SOL 15 ML OU SCH ×2 (09:19→21:06)
[2020-03-06] MEDS: ENOXAPARIN SODIUM 100 MG/1 ML SQ SCH (09:19)
[2020-03-06] MEDS: FLUCONAZOLE 200 MG/NS 100 ML 100 ML IV SCH (10:18)
--- NOTE | 2020-03-06 12:17 | NUR ---
SWALLOW TREATMENT COMPLETED. Pt SEATED AT 90 DEGREES. Pt STATING HE WANTED PEOPLE WHO WERE IN HIS ROOM TO GET OUT (CONFUSED). ABLE TO PARTICIPATE IN P.O. AT THIS TIME DESPITE CONFUSION. MEAL OBSERVATION COMPLETED BY SOUNDSCRIBER MECHANIC. SOUNDSCRIBER MECHANIC ASSISTED IN FEEDING DUE TO UPPER EXTREMITY WEAKNESS. Pt CURRENTLY ON MECHANICAL SOFT/CHOPPED, THIN LIQUID DIET. Pt WITH NO OVERT S/S OF ASPIRATION DURING THE MEAL. Pt IS TOLERATING CURRENT DIET AND IS ABLE TO TAKE PILLS WHOLE. RECOMMEND CONTINUED DIET. SOUNDSCRIBER MECHANIC WILL CONTINUE TO FOLLOW Pt. Addendum: 03/06/20 at 1222 by JOSELINE SOTELO [facility] ST Amended: Links added.
--- NOTE | 2020-03-06 13:26 | NUR ---
DR. PRINCE ROUNDED. MADE AWARE THAT PATIENT HAD SOME INCREASED CONFUSION THIS AM. NO NEW ORDERS RECEIVED.
[2020-03-06] MEDS ORDERED: LORAZEPAM 2 MG/ML 1 ML VIAL IVP PRN (23:45)
[2020-03-06] MEDS ORDERED: LORAZEPAM 2 MG/ML 1 ML VIAL ONE (23:45)
[2020-03-07 04:11] VITALS: BP 139/89
[2020-03-07] MEDS: INSULIN NPH 100 UNIT/ML 3ML SQ SCH (05:35)
[2020-03-07] MEDS: INSULIN HUMULIN R 100 UNIT/ML 3ML SQ SCH ×2 (05:35)
[2020-03-07 06:06] LABS: BILIRUBIN,URINE Negative (NEGATIVE); COLOR,URINE Yellow (YELLOW); GLUCOSE, URINE (UA) Negative (NEGATIVE); KETONES,URINE Trace mg/dL (NEGATIVE); LEUKOCYTE ESTERASE ,URINE Moderate (NEGATIVE); NITRATE,URINE Positive (NEGATIVE); OCCULT BLOOD,URINE Moderate (NEGATIVE); PH,URINE 7.5 (5.0-8.0); PROTEIN,URINE POS 2+ mg/dL (NEGATIVE)
[2020-03-07 06:07] LABS: APPEARANCE,URINE SLIGHTLY CLOUDY (CLEAR)
[2020-03-07 06:29] LABS: BACTERIA,URINE Many /HPF (None Seen); CALCIUM OXALATE CRYSTALS,UR Rare /LPF (None Seen); MUCUS,URINE Few LPF (None Seen)
[2020-03-07 07:01] LABS: BASOPHILS % (AUTO) 0.1 % (0.0-5.0); HEMATOCRIT 33.8 % (42-54); LYMPHOCYTES % (AUTO) 18.2 % (21.0-51.0); MEAN CORPUSCULAR HEMOGLOBIN 30.8 pg (27.0-33.0); MEAN CORPUSCULAR HGB CONC 33.7 g/dL (32.0-36.0); MEAN CORPUSCULAR VOLUME 91.4 fL (79-99); MONOCYTES % (AUTO) 6.1 % (3.0-13.0); NEUTROPHILS % (AUTO) 74.5 % (40.0-77.0); NUCLEATED RED BLOOD CELLS 0.4 % (0.0-0.19); PLATELET COUNT (AUTO) 289 K/uL (130-400); RED CELL DISTRIBUTION WIDTH 15.6 % (11.0-15.5); WHITE BLOOD COUNT (AUTO) 8.2 K/uL (4.8-10.8)
[2020-03-07 07:19] LABS: CREATININE 0.7 mg/dL (0.5-1.5); CRP QUANTITATIVE 15.3 mg/L (0.00-9.0); POTASSIUM 3.4 mmol/L (3.5-5.1)
--- NOTE | 2020-03-07 08:18 | NUR ---
MARISELA ANTHONY NP ROUNDED. INFORMED OF PT'S ELEVATED D-DIMER AND POSITIVE UA. NO NEW ORDERS RECEIVED AT THIS TIME.
[2020-03-07 08:45] VITALS: BP 134/89
[2020-03-07] MEDS: DOCUSATE SODIUM 100 MG CAP PO SCH (09:32)
[2020-03-07] MEDS: DEXAMETHASONE SOD PHOSPHATE 4 MG/ML 1ML VIAL IVP SCH (09:32)
[2020-03-07] MEDS: ZIPRASIDONE HCL 20 MG CAPSULE NG SCH (09:32)
[2020-03-07] MEDS: FAMOTIDINE/PF 20 MG/2 ML VIAL IV SCH ×2 (09:32→20:51)
[2020-03-07] MEDS: ENOXAPARIN SODIUM 100 MG/1 ML SQ SCH (09:33)
[2020-03-07] MEDS: ARTIFICAL TEARS SOL 15 ML OU SCH ×2 (09:33→20:51)
[2020-03-07] MEDS: FLUCONAZOLE 200 MG/NS 100 ML 100 ML IV SCH (11:25)
[2020-03-07 11:47] VITALS: BP 117/74
--- NOTE | 2020-03-07 12:08 | NUR ---
CLAREP/Veena Sheetsn Order received for [facility] [place]. Per primary nurse, pt with confusion today. Call placed to EC on facesheet Erlinda Clarke. Discussed with her Md order/recommendations. She mentions that she will speak w pt's cousin and family members before making a decision.
--- NOTE | 2020-03-07 12:40 | NUR ---
Family callback: Received call from pt's cousin Zay. He mentions that received call from pt's girlfriend Erlinda. However she suffers from anxiety and does not communicate well. Informed Zay that he is not listed on pts facesheet as EC. Per Zay, pts brother [place] should be listed and they can assist w dc planning.
--- NOTE | 2020-03-07 13:02 | NUR ---
DCP update/Family Was able to reach pt's brother [place]ia Huddleston as listed on pt's facesheet. Discussed w him Md order and recommendation. He is aware as pts girlfriend had already communicated w him. ROMI/PC over the phone obtained for Veena. Clinical/PASSR faxed and sent via secure email to May Curiel. Per May she will review info and get back w CM w determination. COVID form/COVID test pending. Primary nurse Tasha aware.
[2020-03-07 15:35] VITALS: BP 114/90
--- NOTE | 2020-03-07 18:40 | NUR ---
PT RESTING QUIETLY IN BED WITH HIS EYES CLOSED AT THIS TIME. ALERT AND ORIENTED TO SELF. INTERMITTENT CONFUSION THROUGHOUT THE SHIFT BUT EASILY REDIRECTED. RESPIRATIONS EVEN AND UNLABORED. 02 SAT 95% ON 2L NC. DENIED ANY PAIN/DISCOMFORT. NO SIGNS/SYMPTOMS OF DISCOMFORT NOTED. MENDEZ INTACT AND PATENT. SAFETY MEASURES IN PLACE.
[2020-03-07 20:31] VITALS: BP 115/78
[2020-03-08 00:34] VITALS: BP 118/84
[2020-03-08 04:53] VITALS: BP 115/80
[2020-03-08 05:43] LABS: BASOPHILS % (AUTO) 0.1 % (0.0-5.0); EOSINOPHILS % (AUTO) 0.1 % (0.0-8.0); HEMATOCRIT 33.8 % (42-54); LYMPHOCYTES % (AUTO) 19.5 % (21.0-51.0); MEAN CORPUSCULAR HEMOGLOBIN 30.6 pg (27.0-33.0); MEAN CORPUSCULAR HGB CONC 33.4 g/dL (32.0-36.0); MEAN CORPUSCULAR VOLUME 91.6 fL (79-99); MONOCYTES % (AUTO) 4.5 % (3.0-13.0); NEUTROPHILS % (AUTO) 74.8 % (40.0-77.0); PLATELET COUNT (AUTO) 287 K/uL (130-400); RED BLOOD CELL COUNT(AUTO) 3.69 MIL/uL (4.50-6.20); RED CELL DISTRIBUTION WIDTH 15.7 % (11.0-15.5); WHITE BLOOD COUNT (AUTO) 8.1 K/uL (4.8-10.8)
[2020-03-08 06:22] LABS: ALBUMIN 2.6 g/dL (3.5-5.0); BILIRUBIN,TOTAL 0.6 mg/dL (0.2-1.0); CREATININE 0.7 mg/dL (0.5-1.5); CRP QUANTITATIVE 37.6 mg/L (0.00-9.0); POTASSIUM 3.6 mmol/L (3.5-5.1); TOTAL PROTEIN, SERUM 6.3 g/dL (6.0-8.3)
[2020-03-08 08:00] VITALS: BP 128/90
[2020-03-08] MEDS: DOCUSATE SODIUM 100 MG CAP PO SCH (09:17)
[2020-03-08] MEDS: FAMOTIDINE/PF 20 MG/2 ML VIAL IV SCH ×2 (09:17→20:38)
[2020-03-08] MEDS: DEXAMETHASONE SOD PHOSPHATE 4 MG/ML 1ML VIAL IVP SCH (09:18)
[2020-03-08] MEDS: ZIPRASIDONE HCL 20 MG CAPSULE NG SCH (09:18)
[2020-03-08] MEDS: ENOXAPARIN SODIUM 100 MG/1 ML SQ SCH (09:19)
[2020-03-08] MEDS: ARTIFICAL TEARS SOL 15 ML OU SCH ×2 (09:27→20:39)
[2020-03-08] MEDS: FLUCONAZOLE 200 MG/NS 100 ML 100 ML IV SCH (11:45)
[2020-03-08 12:00] VITALS: BP 120/77
--- NOTE | 2020-03-08 15:25 | NUR ---
SWALLOW TREATMENT COMPLETED. Pt SITTING UPRIGHT IN BED AND COOPERATIVE WITH THERAPY. Pt ALERT AND ORIENTED X4. TRAY AT BEDSIDE. PATIENT CONSUMED MECHANICAL SOFT SOLIDS AND THIN LIQUIDS WITH NO S/S OF ASPIRATION. Pt CONTINUES TO TOLERATE CURRENT DIET RECOMMENDATIONS AND IS ABLE TO TAKE PILLS WHOLE. RECOMMEND CONTINUED DIET. PATIENT PARTICIPATED WITH LARYNGEAL ELEVATION/EXCURSION EXERCISES WITH 60% ACCURACY. PATIENT REQUIRED FREQUENT BREAKS TO REGAIN AIR SUPPORT. Pt RECEIVING 2LO2 VIA NC. Pt'S VOICE REMAINS BREATHY AND DIMINISHED. Pt PARTICIPATED IN ORAL MOTOR EXERCISES AND BASE RETRACTION EXERCISES WITH 100% ACCURACY GIVEN NO CUES. EDUCATION WAS PROVIDED AND ALL QUESTIONS WERE ANSWERED AT THIS TIME. INFORMATION SERVICES TECH WILL CONTINUE TO ADDRESS DYSPHAGIA GOALS. INFORMATION SERVICES TECH COORDINATED CARE AND RECOMMENDATIONS WITH NURSE DORA. Addendum: 03/08/[address] [facility]RICIA KHAN Amended: Links added.
[2020-03-08 16:00] VITALS: BP 119/80
[2020-03-08 19:58] VITALS: BP 124/61
--- NOTE | 2020-03-08 22:34 | NUR ---
CONFUSED Pt is confused,unable to verbalize need to urinate when jackson cath is clamped for bladder training.
[2020-03-09] VITALS (7 sets, daily range): BP systolic 113–123; BP diastolic 75–84
--- NOTE | 2020-03-09 02:26 | NUR ---
BED BATH Bed bath given,jackson cath care done .Jose D well.
--- NOTE | 2020-03-09 05:21 | NUR ---
JACKSON CATH REMOVED Explained procedure to pt,jackson cath removed,balloon deflated,pt eric well. Addendum: 03/09/20 at 0522 by ARIC NIEVES RN RN Amended: Links added.
[2020-03-09 05:44] LABS: BASOPHILS % (AUTO) 0.2 % (0.0-5.0); EOSINOPHILS % (AUTO) 0.3 % (0.0-8.0); LYMPHOCYTES % (AUTO) 17.5 % (21.0-51.0); MEAN CORPUSCULAR HEMOGLOBIN 30.9 pg (27.0-33.0); MEAN CORPUSCULAR HGB CONC 33.9 g/dL (32.0-36.0); MEAN CORPUSCULAR VOLUME 90.9 fL (79-99); MONOCYTES % (AUTO) 3.8 % (3.0-13.0); PLATELET COUNT (AUTO) 284 K/uL (130-400); RED BLOOD CELL COUNT(AUTO) 3.63 MIL/uL (4.50-6.20); RED CELL DISTRIBUTION WIDTH 15.5 % (11.0-15.5); WHITE BLOOD COUNT (AUTO) 9.2 K/uL (4.8-10.8)
[2020-03-09 06:01] LABS: CREATININE 0.6 mg/dL (0.5-1.5); CRP QUANTITATIVE 39.6 mg/L (0.00-9.0); POTASSIUM 3.3 mmol/L (3.5-5.1)
[2020-03-09] MEDS: LIDOCAINE HCL-MPF 1% 2ML VIAL IV PRN (06:37)
[2020-03-09] MEDS: POTASSIUM CHLORIDE 20MEQ/100ML 100 ML IV PRN ×2 (06:37→08:42)
[2020-03-09] MEDS: FAMOTIDINE/PF 20 MG/2 ML VIAL IV SCH ×2 (08:42→20:57)
[2020-03-09] MEDS: ZIPRASIDONE HCL 20 MG CAPSULE NG SCH (08:42)
[2020-03-09] MEDS: DOCUSATE SODIUM 100 MG CAP PO SCH (08:42)
[2020-03-09] MEDS: DEXAMETHASONE SOD PHOSPHATE 4 MG/ML 1ML VIAL IVP SCH (08:43)
[2020-03-09] MEDS: ARTIFICAL TEARS SOL 15 ML OU SCH ×2 (08:45→21:32)
[2020-03-09] MEDS: ENOXAPARIN SODIUM 100 MG/1 ML SQ SCH (08:45)
--- NOTE | 2020-03-09 11:40 | NUR ---
FOLLOW UP COMPLETED. Pt TOLERATING MECHANICAL SOFT/CHOPPED, THIN LIQUID DIET WITH NO OVERT S/S OF ASPIRATION. RECOMMEND CONTINUED DIET. SOURCE INSPECTOR WILL CONTINUE TO FOLLOW Pt. Addendum: 03/09/20 at 1147 by JOSELINE SOTELO, SPT ST Amended: Links added.
[2020-03-09] MEDS: FLUCONAZOLE 200 MG/NS 100 ML 100 ML IV SCH (12:31)
[2020-03-09 15:06] LABS: CREATININE 0.8 mg/dL (0.5-1.5); POTASSIUM 4.7 mmol/L (3.5-5.1)
[2020-03-10 03:12] VITALS: BP 123/79
[2020-03-10 05:01] LABS: BASOPHILS % (AUTO) 0.2 % (0.0-5.0); EOSINOPHILS % (AUTO) 0.2 % (0.0-8.0); HEMATOCRIT 33.5 % (42-54); LYMPHOCYTES % (AUTO) 16.1 % (21.0-51.0); MEAN CORPUSCULAR HEMOGLOBIN 30.8 pg (27.0-33.0); MEAN CORPUSCULAR HGB CONC 33.7 g/dL (32.0-36.0); MEAN CORPUSCULAR VOLUME 91.3 fL (79-99); MONOCYTES % (AUTO) 4.6 % (3.0-13.0); NEUTROPHILS % (AUTO) 77.4 % (40.0-77.0); PLATELET COUNT (AUTO) 264 K/uL (130-400); RED BLOOD CELL COUNT(AUTO) 3.67 MIL/uL (4.50-6.20); RED CELL DISTRIBUTION WIDTH 15.9 % (11.0-15.5); WHITE BLOOD COUNT (AUTO) 9.9 K/uL (4.8-10.8)
[2020-03-10 05:33] LABS: CREATININE 0.7 mg/dL (0.5-1.5); CRP QUANTITATIVE 56.1 mg/L (0.00-9.0); POTASSIUM 3.5 mmol/L (3.5-5.1)
[2020-03-10] MEDS ORDERED: POTASSIUM CHLORIDE 20MEQ/100ML 100 ML IV PRN (06:00)
[2020-03-10] MEDS ORDERED: POTASSIUM CHLORIDE 10% ELIXIR 20 MEQ/15 ML UDCUP PO PRN (06:00)
[2020-03-10] MEDS ORDERED: POTASSIUM CHLORIDE 20 MEQ ERTAB PO PRN (06:00)
[2020-03-10] MEDS ORDERED: LIDOCAINE HCL-MPF 1% 2ML VIAL IV PRN (06:00)
[2020-03-10 08:00] VITALS: BP 123/84
[2020-03-10] MEDS: ENOXAPARIN SODIUM 40 MG/0.4 ML SYRINGE SQ SCH (08:26)
[2020-03-10] MEDS: DOCUSATE SODIUM 100 MG CAP PO SCH (08:26)
[2020-03-10] MEDS: DEXAMETHASONE SOD PHOSPHATE 4 MG/ML 1ML VIAL IVP SCH (08:27)
[2020-03-10] MEDS: ARTIFICAL TEARS SOL 15 ML OU SCH ×2 (08:29→20:48)
--- NOTE | 2020-03-10 10:14 | NUR ---
DC PLAN SPOKE TO DAREN FROM [facility]. SAID THEY RECEIVED AUTH FROM INSURANCE. SENT UPDATES. PENDING COVID RETEST SINCE [facility] HAS BEEN WANTING COVID TEST WITH IN 72 HRS TO TRANSFER TO [facility]. Addendum: 03/10/20 at 1020 by FREDDIE OMALLEY RN CM Amended: Links added.
[2020-03-10] MEDS ORDERED: SODIUM CHLORIDE 0.9% 500ML 500 ML IV ONE (11:04)
[2020-03-10] MEDS: LEVOFLOXACIN 750 MG/D5W 150 ML 150 ML IV SCH (11:10)
[2020-03-10 12:15] VITALS: BP 147/69
--- NOTE | 2020-03-10 12:41 | NUR ---
DC PLAN SPOKE TO ALYSON WAITING ONE MORE DAY PENDING COVID RETEST RESULTS. FEVER 100.1 THIS MORNING. Addendum: 03/10/20 at 1242 by FREDDIE OMALLEY RN CM Amended: Links added.
[2020-03-10 16:00] VITALS: BP 116/59
[2020-03-10] MEDS ORDERED: POTASSIUM CHLORIDE 10% ELIXIR 20 MEQ/15 ML UDCUP ONE (16:59)
--- NOTE | 2020-03-10 18:04 | NUR ---
COVID RESULT & K+ second dose of 20 MEQ of potassium replace orally for serum potassium of 3.5. Received phone call from lab that patients swab from 03/09/2020 came back POSITIVE today for COVID19.
[2020-03-10 20:49] VITALS: BP 100/64
[2020-03-11 05:59] VITALS: BP 103/66
[2020-03-11 06:09] LABS: BASOPHILS % (AUTO) 0.2 % (0.0-5.0); EOSINOPHILS % (AUTO) 0.3 % (0.0-8.0); HEMATOCRIT 32.4 % (42-54); LYMPHOCYTES % (AUTO) 18.6 % (21.0-51.0); MEAN CORPUSCULAR HEMOGLOBIN 30.8 pg (27.0-33.0); MEAN CORPUSCULAR HGB CONC 33.6 g/dL (32.0-36.0); MEAN CORPUSCULAR VOLUME 91.5 fL (79-99); MONOCYTES % (AUTO) 4.8 % (3.0-13.0); NEUTROPHILS % (AUTO) 72.6 % (40.0-77.0); PLATELET COUNT (AUTO) 257 K/uL (130-400); RED BLOOD CELL COUNT(AUTO) 3.54 MIL/uL (4.50-6.20); RED CELL DISTRIBUTION WIDTH 15.6 % (11.0-15.5)
[2020-03-11 06:32] LABS: CREATININE 0.6 mg/dL (0.5-1.5); CRP QUANTITATIVE 120.4 mg/L (0.00-9.0); MAGNESIUM 1.9 mg/dL (1.80-2.40); PHOSPHORUS 2.6 mg/dL (2.5-4.9); POTASSIUM 3.6 mmol/L (3.5-5.1)
[2020-03-11 08:00] VITALS: BP 115/71
[2020-03-11] MEDS: DOCUSATE SODIUM 100 MG CAP PO SCH (09:07)
[2020-03-11] MEDS: DEXAMETHASONE SOD PHOSPHATE 4 MG/ML 1ML VIAL IVP SCH (09:08)
[2020-03-11] MEDS: ENOXAPARIN SODIUM 40 MG/0.4 ML SYRINGE SQ SCH (09:11)
[2020-03-11] MEDS: ARTIFICAL TEARS SOL 15 ML OU SCH (09:21)
[2020-03-11] MEDS: LEVOFLOXACIN 750 MG/D5W 150 ML 150 ML IV SCH (10:15)
--- NOTE | 2020-03-11 11:00 | NUR ---
Pt turned in prone position, pt tolerating the prone position well. no complaints offered. will cont to monitor
[2020-03-11 11:30] VITALS: BP 108/73
--- NOTE | 2020-03-11 12:29 | NUR ---
FOLLOW UP COMPLETED. Pt IN PRONE POSITION. NO FOOD OR LIQUID PROVIDED AT THIS TIME. Pt TOLERATING DIET WITH NO OVERT S/S OF ASPIRATION. GRASS FARM LABORER WILL CONTINUE TO FOLLOW Pt. Addendum: 03/11/20 at 1238 by JOSELINE SOTELO, [facility] Amended: Links added.
--- NOTE | 2020-03-11 13:16 | NUR ---
Report given to Nurse Kong Wilks at [facility]. Ems to pickling machine operator patient at 1430.
--- NOTE | 2020-03-12 08:31 | NUR ---
CLARE PLAN - RETAMA Addendum: 03/12/20 at 0835 by FREDDIE OMALLEY RN CM Amended: Links added.
== END 2020-03-11 15:00 | DRG 870 ==
LOC: EDH 22:40 → EDHIP 02-06 02:30 → 4DH 02-07 03:16 → 2CH 02-08 08:43 → 2CV 02-11 16:33 → 2BH 02-14 19:16 → 2AH 03-04 14:57 → 2DH 03-06 03:37 → 2AH 03-06 05:29
PROVIDERS: ADMIT Internal Medicine; ATTEND Internal Medicine
PROC: XW033E5 Introduction of Remdesivir Anti-infective into Peripheral Vein, Percutaneous Approach, New Technology Group 5 (ICD-10-PCS; 2020-02-06)
PROC: XW13325 Transfusion of Convalescent Plasma (Nonautologous) into Peripheral Vein, Percutaneous Approach, New Technology Group 5 (ICD-10-PCS; 2020-02-06)
PROC: 02HV33Z Insertion of Infusion Device into Superior Vena Cava, Percutaneous Approach (ICD-10-PCS; principal; 2020-02-08)
PROC: 5A1955Z Respiratory Ventilation, Greater than 96 Consecutive Hours (ICD-10-PCS; 2020-02-08)
PROC: B548ZZA Ultrasonography of Superior Vena Cava, Guidance (ICD-10-PCS; 2020-02-08)
PROC: 0BH17EZ Insertion of Endotracheal Airway into Trachea, Via Natural or Artificial Opening (ICD-10-PCS; 2020-02-08)
DX: A41.53 Sepsis due to Serratia (principal); U07.1 COVID-19; J12.89 Other viral pneumonia; R65.21 Severe sepsis with septic shock; N17.0 Acute kidney failure with tubular necrosis; J96.01 Acute respiratory failure with hypoxia; M62.82 Rhabdomyolysis; E87.0 Hyperosmolality and hypernatremia; E87.1 Hypo-osmolality and hyponatremia; N39.0 Urinary tract infection, site not specified; S36.119A Unspecified injury of liver, initial encounter; Z99.11 Dependence on respirator [ventilator] status; B96.5 Pseudomonas (aeruginosa) (mallei) (pseudomallei) as the cause of diseases classified elsewhere; D64.9 Anemia, unspecified; E03.9 Hypothyroidism, unspecified; E11.649 Type 2 diabetes mellitus with hypoglycemia without coma; E66.01 Morbid (severe) obesity due to excess calories; E78.00 Pure hypercholesterolemia, unspecified; E78.5 Hyperlipidemia, unspecified; E83.51 Hypocalcemia; E86.0 Dehydration; E87.5 Hyperkalemia; E11.65 Type 2 diabetes mellitus with hyperglycemia; F41.9 Anxiety disorder, unspecified; I11.9 Hypertensive heart disease without heart failure; R53.81 Other malaise; L89.90 Pressure ulcer of unspecified site, unspecified stage; Z68.29 Body mass index [BMI] 29.0-29.9, adult; Z74.01 Bed confinement status; Z79.4 Long term (current) use of insulin; Z99.2 Dependence on renal dialysis
CPT/HCPCS: 0099U; 31500; 36415; 36430; 36600; 71045; 71275; 76770; 80048; 80053; 80076; 81001; 82435; 82550; 82728; 82803; 82947; 82948; 83605; 83615; 83735; 83880; 84075; 84100; 84132; 84145; 84295; 84484; 85014; 85018; 85025; 85027; 85378; 85610; 85730; 86140; 86850; 86900; 86901; 86927; 87040; 87077; 87088; 87186; 87804; 92507; 92610; 93005; 93306; 93356; 94002; 94003; 94150; 97039; 99291; G0378; J0456; J0692; J0696; J1100; J1450; J1650; J1815; J1940; J1956; J2020; J2060; J2185; J2405; J2597; J2704; J2920; J2930; J3010; J3475; J3480; J3490; J7030; J7040; J7050; J7060; J7070; J7120; J8540; P9017; Q9967; U0003

== ENCOUNTER → 2020-10-16 | Outpatient (CLI) | payer OTHER | END | disposition home or self-care (01) | LOC: RAH 10:14 | PROVIDERS: ATTEND Family Medicine | DX: E03.9 Hypothyroidism, unspecified (principal) | CPT/HCPCS: 76536 ==